=== PATIENT | male | born 1985 | race Caucasian/White ===

== ENCOUNTER 2019-09-20 06:01 | Emergency (ER) | payer OTHER, SELFPAY ==
[2019-09-20 06:05] VITALS: BP 161/80; PULSE 72; RESP 18; TEMP 36.4; O2SAT 99
[2019-09-20] MEDS: SODIUM CHLORIDE 0.9% 1,000 ML 1000 ML IV (06:30)
[2019-09-20] MEDS: ONDANSETRON 4 MG/2 ML INJ IV (06:30)
[2019-09-20] MEDS: HYDROMORPHONE 0.5 MG INJ IV (06:30)
--- NOTE | 2019-09-20 06:55 | ED.ABDPAIN ---
HPI - Abdominal Pain <Zuri Mary MD - Last Filed: 09/20/19 18:03> General Chief Complaint: Abdominal Pain Stated Complaint: abdominal pain Time Seen by Provider: 09/20/19 06:05 History of Present Illness HPI narrative: 33-year-old gentleman presents with left-sided abdominal pain present for 24 hours. Worse with movement not associated with nausea, vomiting, diarrhea. No fevers. He has describes it as consistent, nonradiating, and without cramps. Has not experienced similar episodes of pain. Related Data Allergies Allergy/AdvReac Type Severity Reaction Status Date / Time No Known Drug Allergies Allergy Verified 09/20/19 07:02 Review of Systems <Zuri Mary MD - Last Filed: 09/20/19 18:03> Review of Systems Narrative: : Pertinent positive and negative findings as per HPI, Remainder of review of systems is otherwise unremarkable for Constitutional: Fevers, chills, weakness ENT: No sore throat, neck pain, ear pain CV: Chest pain, palpitations, dyspnea on exertion Respiratory: Cough, wheeze, dyspnea : Dysuria, hematuria, flank pain MS: Muscle weakness, numbness, joint swelling or warmth Skin: Rashes, nonhealing lesions Neuro: Syncope, dizziness, tingling Endocrine: Fatigue, heat or cold intolerance, very dry skin Patient History <Zuri Mary MD - Last Filed: 09/20/19 18:03> Medical History (Updated 09/20/19 @ 08:38 by Hernandez Jolley DO) Low testosterone (Acute) Surgical History (Updated 09/20/19 @ 06:56 by Zuri Mary MD) History of breast surgery (Acute) Social History Smoking Status: Never smoker Smoking Status: Never smoker alcohol intake frequency: 0-2 drinks per day Substance Use Type: marijuana Exam <Zuri Mary MD - Last Filed: 09/20/19 18:03> Narrative Exam Narrative: General: Healthy appearing, in no acute distress. Able to give a complete and coherent history. Well-nourished well-developed HEENT: Moist mucous membranes, normal sclera with reactive pupils, Neck: No JVD, supple Respiratory: Lungs are clear to auscultation, no wheezing no rales no rhonchi. Full and symmetrical air movement Cardiac: Regular rate and rhythm no murmurs no bruits Abdomen: Soft, very tender in the entire left side but worse in the left lower quadrant. Hyperactive bowel tones, no rebound, no guarding. no flank pain Skin: Warm and dry, no rashes Neurologic: Grossly neurologically intact with no obvious asymmetries or abnormalities Extremities: No trauma, well perfused Psych: Cooperative, appropriate insight and affect Initial Vital Signs Initial Vital Signs: Vital Signs Temperature 97.5 F L 09/20/19 06:05 Pulse Rate 72 09/20/19 06:05 Respiratory Rate 18 09/20/19 06:05 Blood Pressure 161/80 H 09/20/19 06:05 Pulse Oximetry 99 09/20/19 06:05 <Hernandez Jolley DO - Last Filed: 09/20/19 08:39> Initial Vital Signs Initial Vital Signs: Vital Signs Temperature 97.5 F L 09/20/19 06:05 Pulse Rate 72 09/20/19 06:05 Respiratory Rate 18 09/20/19 06:05 Blood Pressure 161/80 H 09/20/19 06:05 Pulse Oximetry 99 09/20/19 06:05 Course <Zuri Mary MD - Last Filed: 09/20/19 18:03> Orders Ordered: Discontinued Medications Hydromorphone HCl (Dilaudid) 0.5 mg IV NOW ONE Stop: 09/20/19 06:59 Last Admin: 09/20/19 06:30 Dose: 0.5 mg Documented by: JENNIFER Hydromorphone HCl (Dilaudid) 1 mg IV NOW ONE Stop: 09/20/19 07:00 Last Admin: 09/20/19 07:40 Dose: 1 mg Documented by: MAYA Sodium Chloride (Normal Saline 0.9%) 1,000 mls @ 1,000 mls/hr IV BOLUS ONE Stop: 09/20/19 07:57 Last Infusion: 09/20/19 09:07 Dose: 0 mls/hr Documented by: Admin: 09/20/19 06:30 Dose: 1,000 mls/hr Documented by: JENNIFER Ondansetron HCl (Zofran) 4 mg IV NOW ONE Stop: 09/20/19 07:00 Last Admin: 09/20/19 06:30 Dose: 4 mg Documented by: JENNIFER Vital Signs Vital signs: Vital Signs - 8 hr 09/20/19 06:05 09/20/19 07:25 09/20/19 07:30 Temperature 97.5 F L Pulse Rate 72 61 65 Respiratory Rate 18 16 16 Blood Pressure 161/80 H Blood Pressure [Left Arm] 133/81 130/78 Pulse Oximetry 99 98 95 09/20/19 08:00 Temperature Pulse Rate 68 Respiratory Rate 16 Blood Pressure Blood Pressure [Left Arm] 138/74 Pulse Oximetry 96 <Hernandez Jolley DO - Last Filed: 09/20/19 08:39> Orders Ordered: Discontinued Medications Hydromorphone HCl (Dilaudid) 0.5 mg IV NOW ONE Stop: 09/20/19 06:59 Last Admin: 09/20/19 06:30 Dose: 0.5 mg Documented by: JENNIFER Hydromorphone HCl (Dilaudid) 1 mg IV NOW ONE Stop: 09/20/19 07:00 Last Admin: 09/20/19 07:40 Dose: 1 mg Documented by: MAYA Sodium Chloride (Normal Saline 0.9%) 1,000 mls @ 1,000 mls/hr IV BOLUS ONE Stop: 09/20/19 07:57 Last Infusion: 09/20/19 09:07 Dose: 0 mls/hr Documented by: Admin: 09/20/19 06:30 Dose: 1,000 mls/hr Documented by: JENNIFER Ondansetron HCl (Zofran) 4 mg IV NOW ONE Stop: 09/20/19 07:00 Last Admin: 09/20/19 06:30 Dose: 4 mg Documented by: JENNIFER Vital Signs Vital signs: Vital Signs - 8 hr 09/20/19 06:05 09/20/19 07:25 09/20/19 07:30 Temperature 97.5 F L Pulse Rate 72 61 65 Respiratory Rate 18 16 16 Blood Pressure 161/80 H Blood Pressure [Left Arm] 133/81 130/78 Pulse Oximetry 99 98 95 09/20/19 08:00 Temperature Pulse Rate 68 Respiratory Rate 16 Blood Pressure Blood Pressure [Left Arm] 138/74 Pulse Oximetry 96 MDM - Abdominal Pain <Zuri Mary MD - Last Filed: 09/20/19 18:03> Medical Records Attestation: I reviewed the patient's medical records. Lab Data Attestation: I reviewed the patient's lab results. Lab results narrative: CBC: WBC 6.6 HB.6 HCT:41.9 normal differential Result diagrams: 09/20/19 06:15 09/20/19 06:15 Labs: Lab Results 09/20/19 09/20/19 09/20/19 Range/Units 06:15 06:15 06:15 WBC 6.6 (4.5-11.0) X10^3/uL RBC 4.76 (4.5-5.9) X10^6/uL Hgb 14.6 (13.5-17.5) g/dL Hct 41.9 (41-53) % MCV 88.0 (80-100) fL MCH 30.7 (26-34) PG MCHC 34.9 (30-36) % RDW 13.3 (11.6-14.8) % Plt Count 215 (150-400) X10^3/uL Neut % (Auto) 64.7 (50-75) % Lymph % (Auto) 21.2 L (25-40) % [place] % (Auto) 9.7 (3-14) % Eos % (Auto) 3.3 (2-4) % Baso % (Auto) 1.1 (0-2) % Neut # (Auto) 4300 (6424-8985) /uL Lymph # (Auto) 1400 (7139-4609) /uL [place] # (Auto) 600 (0-900) /uL Eos # (Auto) 200 (0-450) /uL Baso # (Auto) 100 (0-100) /uL Sodium 139 (137-145) mmol/L Potassium 4.0 (3.4-5.1) mmol/L Chloride 106 (98-107) mmol/L Carbon Dioxide 25 (22-32) mmol/L BUN 20 (9-20) mg/dL Creatinine 0.87 (0.66-1.25) mg/dL Estimated GFR > 60.0 (>60) mL/min BUN/Creatinine Ratio 23.0 H (6-22) Glucose 96 (70-100) mg/dL Calcium 9.0 (8.4-10.2) mg/dL Total Bilirubin 0.4 (0.2-1.3) mg/dL AST 34 (17-59) IU/L ALT 27 (<50) IU/L Alkaline Phosphatase 53 (38-126) U/L Total Protein 6.7 (6.3-8.2) g/dL Albumin 4.1 (3.5-5.0) g/dL Globulin 2.6 (1.7-4.1) g/dL Albumin/Globulin Ratio 1.6 (1.0-2.8) Lipase 68 (23-300) U/L Point of care testing: Urine Dip Bedside Urine Glucose Negative Bedside Urine Bilirubin - Negative Bedside Urine Ketone - Negative Urine Specific [place] 1.010 Bedside Urine Occult Blood + Bedside Urine pH 6.5 Bedside Urine Protein - Negative Bedside Urine Urobilinogen - Negative Bedside Urine Nitrite - Negative Bedside Urine Leukocytes - Negative Esterase MDM Narrative Medical decision making narrative: 33-year-old gentleman with 24 hours of significant left-sided abdominal pain worse in the left lower quadrant. Concern for diverticulitis as well as pancreatitis. As he has no flank pain hematuria or dysuria kidney stone is less likely. <Hernandez Jolley DO - Last Filed: 09/20/19 08:39> Lab Data Attestation: I reviewed the patient's lab results. Labs: Lab Results 09/20/19 09/20/19 09/20/19 Range/Units 06:15 06:15 06:15 WBC 6.6 (4.5-11.0) X10^3/uL RBC 4.76 (4.5-5.9) X10^6/uL Hgb 14.6 (13.5-17.5) g/dL Hct 41.9 (41-53) % MCV 88.0 (80-100) fL MCH 30.7 (26-34) PG MCHC 34.9 (30-36) % RDW 13.3 (11.6-14.8) % Plt Count 215 (150-400) X10^3/uL Neut % (Auto) 64.7 (50-75) % Lymph % (Auto) 21.2 L (25-40) % [place] % (Auto) 9.7 (3-14) % Eos % (Auto) 3.3 (2-4) % Baso % (Auto) 1.1 (0-2) % Neut # (Auto) 4300 (3098-9595) /uL Lymph # (Auto) 1400 (8365-1423) /uL [place] # (Auto) 600 (0-900) /uL Eos # (Auto) 200 (0-450) /uL Baso # (Auto) 100 (0-100) /uL Sodium 139 (137-145) mmol/L Potassium 4.0 (3.4-5.1) mmol/L Chloride 106 (98-107) mmol/L Carbon Dioxide 25 (22-32) mmol/L BUN 20 (9-20) mg/dL Creatinine 0.87 (0.66-1.25) mg/dL Estimated GFR > 60.0 (>60) mL/min BUN/Creatinine Ratio 23.0 H (6-22) Glucose 96 (70-100) mg/dL Calcium 9.0 (8.4-10.2) mg/dL Total Bilirubin 0.4 (0.2-1.3) mg/dL AST 34 (17-59) IU/L ALT 27 (<50) IU/L Alkaline Phosphatase 53 (38-126) U/L Total Protein 6.7 (6.3-8.2) g/dL Albumin 4.1 (3.5-5.0) g/dL Globulin 2.6 (1.7-4.1) g/dL Albumin/Globulin Ratio 1.6 (1.0-2.8) Lipase 68 (23-300) U/L Point of care testing: Urine Dip Bedside Urine Glucose Negative Bedside Urine Bilirubin - Negative Bedside Urine Ketone - Negative Urine Specific [place] 1.010 Bedside Urine Occult Blood + Bedside Urine pH 6.5 Bedside Urine Protein - Negative Bedside Urine Urobilinogen - Negative Bedside Urine Nitrite - Negative Bedside Urine Leukocytes - Negative Esterase Imaging Data CT scan - abdomen/pelvis: Radiologist's Impression: [address] [address] [address] Scan Report Signed Patient: Martir Lynch [facility]#: [id number] : 1985Acct:[id number] Age/Sex: 33 / MDate of Service: 09/20/19 Loc: ED Accession Number: [id number] Procedure: CT abdomen pelvis w con Ordering Provider: Zuri Mary MD PROCEDURE: CT ABDOMEN PELVIS W CON INDICATIONS: lower abdomen pain TECHNIQUE: After the administration of intravenous contrast, 5 mm thick sections acquired from the diaphragm to the symphysis. 5 mm coronal and sagittal reformats were acquired. For radiation dose reduction, the following was used: automated exposure control, adjustment of mA and/or kV according to patient size. COMPARISON: None. FINDINGS: Image quality: Excellent. ABDOMEN: Lung bases: Lung bases are clear. 1.1 cm calcified nodule noted in the anterolateral right lung base. Heart size is normal. Solid organs: Liver is normal in size and enhancement. Gallbladder is within normal limits. Biliary system is non dilated. Pancreas enhances normally. Spleen is normal in size and enhancement. No adrenal nodules. Kidneys demonstrate normal size and enhancement, without hydronephrosis. Peritoneum and bowel: Bowel loops demonstrate normal wall thickness and caliber. Moderate amount of stool noted throughout the colon. No free fluid or air. Appendix is normal. Nodes and vessels: No retroperitoneal or mesenteric adenopathy by size criteria. Aorta and inferior vena cava are normal in size. Miscellaneous: No ventral hernias. PELVIS: Genitourinary: Bladder wall thickness is normal. Miscellaneous: No inguinal hernias or adenopathy. Bones: No suspicious bony lesions. No vertebral body compression fractures. IMPRESSION: 1. No acute disease. 2. No free fluid or free air. 3. No dilated loops of bowel. 4. Appendix is normal. 5. Moderate fecal loading throughout colon. Please correlate with clinical data. 6. 1.1 cm partially calcified nodule in the right lung base. Dictated by: Graciela Powell MD, PhD on 09/20/2019 at 8:30 Approved by: Graciela Powell MD, PhD on 09/20/2019 at 8:34 [facility] Narrative Medical decision making narrative: Dr jolley: Received turned over from night provider. Reviewed patient's history and physical and labs. Perform my own independent exam. Patient's CT scan shows no acute pathology other than a moderate amount of stool burden however the patient states that he has been having normal bowel movements on a regular basis. He has no skin changes. Has not had any diarrhea or no travel. Unsure the exact etiology the symptoms but it does not appear to be infectious. Does not appear to be a kidney stone. Does not appear to be a surgical issue. No indication for admission. Feel patient can be safely discharged home to follow-up. He was informed of the incidental lung nodule and follow-up related to that. Discharge Plan Departure Patient Disposition: Home Clinical Impression: Incidental lung nodule, less than or equal to 3mm Abdominal pain Qualifiers: Abdominal location: left lower quadrant Qualified Code(s): R10.32 - Left lower quadrant pain Discharge Date/Time: 09/20/19 09:14 Instructions: DI for Abdominal Pain-Adult Activity Restrictions/Additional Instructions: Recommend you contact your primary provider for follow-up. If your pain changes or you develop any other new symptoms please return to the emergency department. There was a incidental 1 cm calcified right-sided lung nodule seen on the CT scan today. This is not causing the symptoms that brought you to the emergency department however it is important that you talk with your primary provider regarding this to discuss follow-up.
[2019-09-20 07:04] LABS: Add Manual Diff / Slide Review NO; Basophils Absolute Auto 100 /uL (0-100); Basophils Percent Auto 1.1 % (0-2); Eosinophils Absolute Auto 200 /uL (0-450); Eosinophils Percent Auto 3.3 % (2-4); Hematocrit 41.9 % (41-53); Hemoglobin 14.6 g/dL (13.5-17.5); Lymphocytes Absolute Auto 1400 /uL (1100-4500); Lymphocytes Percent Auto 21.2 % (25-40); Mean Corpuscular HGB Conc 34.9 % (30-36); Mean Corpuscular Hemoglobin 30.7 PG (26-34); Monocytes Absolute Auto 600 /uL (0-900); Monocytes Percent Auto 9.7 % (3-14); Neutrophils Absolute Auto 4300 /uL (1500-7000); Neutrophils Percent Auto 64.7 % (50-75); Platelet Count 215 X10^3/uL (150-400); Red Blood Cell Count 4.76 X10^6/uL (4.5-5.9); Red Cell Distribution Width 13.3 % (11.6-14.8); White Blood Cell Count 6.6 X10^3/uL (4.5-11.0)
[2019-09-20 07:06] LABS: Alanine Aminotransferase 27 IU/L (<50); Albumin 4.1 g/dL (3.5-5.0); Albumin Globulin Ratio 1.6 (1.0-2.8); Alkaline Phosphatase 53 U/L (38-126); Aspartate Aminotransferase 34 IU/L (17-59); Bilirubin Total 0.4 mg/dL (0.2-1.3); Blood Urea Nitrogen 20 mg/dL (9-20); Carbon Dioxide 25 mmol/L (22-32); Chloride 106 mmol/L (98-107); Estimated Glomerular Filt Rate > 60.0 mL/min (>60); Globulin 2.6 g/dL (1.7-4.1); Glucose 96 mg/dL (70-100); HEMOLYSIS < 15 (0-50); Sodium 139 mmol/L (137-145); Total Protein 6.7 g/dL (6.3-8.2)
[2019-09-20 07:12] LABS: Lipase 68 U/L (23-300)
[2019-09-20 07:25] VITALS: BP 133/81; PULSE 61; RESP 16; O2SAT 98
[2019-09-20 07:30] VITALS: BP 130/78; PULSE 65; RESP 16; O2SAT 95
[2019-09-20] MEDS: HYDROMORPHONE 1 MG INJ IV (07:40)
--- NOTE | 2019-09-20 07:53 | PC.NURSE ---
reports left lower abdominal pain onset after getting out of the shower yesterday, denies injuries or trauma denies fever,vomiting, +bm today wnl, denies coughing. denies previous abdominal surgery reports, has restless legs uses marijuana edible.
[2019-09-20 08:00] VITALS: BP 138/74; PULSE 68; RESP 16; O2SAT 96
[2019-09-20 08:30] VITALS: BP 138/82; PULSE 70; RESP 16; O2SAT 96
== END 2019-09-20 09:14 | disposition home or self-care (01) ==
PROVIDERS: Emergency Medicine; Emergency Provider Emergency Medicine
DX: R10.32 Left lower quadrant pain (principal); R91.1 Solitary pulmonary nodule
CPT/HCPCS: 36415; 74177; 80053; 81003; 83690; 85025; 96361; 96374; 96375; 96376; 99284; J1170; J2405; Q9967

== ENCOUNTER 2019-09-28 06:16 | Emergency (ER) | payer OTHER, SELFPAY ==
--- NOTE | 2019-09-28 06:20 | ED_ITS ---
HPI - Abdominal Pain <Zuri Mary MD - Last Filed: 09/28/19 18:09> General Chief Complaint: Abdominal Pain Stated Complaint: ABD PAIN LEFT SIDE Time Seen by Provider: 09/28/19 06:20 History of Present Illness HPI narrative: 33-year-old gentleman with a history of low testosterone presents for the 2nd time in in a week with severe left lower quadrant abdominal pain. With his initial visit labs were unremarkable and a CT scan was non revealing. Over the interval week he has tried smooth move tea and notes that he did have quite a bit of stool out last week however over the last couple of days the pain is increased and he is no longer having as much success with the smooth move tea. Describes pain is deep and achy localized in the left lower quadrant without radiation. Got dramatically worse after dinner last night and he has been and unable to sleep all night. He describes no hematuria, dysuria he has had an episode of emesis is passing flatus, he describes no fevers, cough, chills, chest pain, dyspnea. Related Data Previous Rx's Medication Instructions Recorded ciprofloxacin HCl [Cipro] 500 mg PO BID #14 tab 09/28/19 hydrocodone-acetaminophen 1 tab PO Q6H PRN #10 tab 09/28/19 ondansetron 4 mg PO Q8H PRN #10 tab 09/28/19 Allergies Allergy/AdvReac Type Severity Reaction Status Date / Time No Known Drug Allergies Allergy Verified 09/20/19 07:02 Review of Systems <Zuri Mary MD - Last Filed: 09/28/19 18:09> Review of Systems Narrative: Pertinent positive and negative findings as per HPI Remainder of review of systems is otherwise unremarkable for Constitutional: Fevers, chills, weakness ENT: No sore throat, neck pain, ear pain MS: Muscle weakness, numbness, joint swelling or warmth Skin: Rashes, nonhealing lesions Neuro: Syncope, dizziness, tingling Patient History <Zuri Mary MD - Last Filed: 09/28/19 18:09> Medical History Low testosterone (Acute) Surgical History History of breast surgery (Acute) Social History Smoking Status: Never smoker Smoking Status: Never smoker alcohol intake frequency: 0-2 drinks per day Substance Use Type: marijuana Exam <Zuri Mary MD - Last Filed: 09/28/19 18:09> Narrative Exam Narrative: General: Healthy appearing, in mild distress. Able to give a complete and coherent history. Well-nourished well-developed HEENT: Moist mucous membranes, normal sclera with reactive pupils, Neck: No JVD, supple Respiratory: Lungs are clear to auscultation, no wheezing no rales no rhonchi. Full and symmetrical air movement Cardiac: Regular rate and rhythm no murmurs no bruits Abdomen: Soft tender in the left lower quadrant without rebound or guarding, good bowel tones, no flank pain Skin: Warm and dry, no rashes Neurologic: Grossly neurologically intact with no obvious asymmetries or abnormalities Extremities: No trauma, well perfused Psych: Cooperative, appropriate insight and affect Initial Vital Signs Initial Vital Signs: Vital Signs Temperature 97.9 F 09/28/19 06:25 Pulse Rate 64 09/28/19 06:25 Respiratory Rate 16 09/28/19 06:25 Blood Pressure 165/99 H 09/28/19 06:25 Pulse Oximetry 99 09/28/19 06:25 <Luna Sampson DO - Last Filed: 09/28/19 12:21> Initial Vital Signs Initial Vital Signs: Vital Signs Temperature 97.9 F 09/28/19 06:25 Pulse Rate 64 09/28/19 06:25 Respiratory Rate 16 09/28/19 06:25 Blood Pressure 165/99 H 09/28/19 06:25 Pulse Oximetry 99 09/28/19 06:25 Course <Zuri Mary MD - Last Filed: 09/28/19 18:09> Orders Ordered: Discontinued Medications Hydromorphone HCl (Dilaudid) 0.5 mg IV NOW ONE Stop: 09/28/19 06:36 Last Admin: 09/28/19 06:43 Dose: 0.5 mg Documented by: MARCIO Hydromorphone HCl (Dilaudid) 1 mg IV NOW ONE Stop: 09/28/19 08:58 Last Admin: 09/28/19 09:12 Dose: 1 mg Documented by: MENA Sodium Chloride (Normal Saline 0.9%) 1,000 mls @ 1,000 mls/hr IV BOLUS ONE Stop: 09/28/19 07:34 Last Infusion: 09/28/19 09:17 Dose: 0 mls/hr Documented by: Admin: 09/28/19 06:44 Dose: 1,000 mls/hr Documented by: MARCIO Ketorolac Tromethamine (Toradol) 30 mg IV NOW ONE Stop: 09/28/19 07:15 Last Admin: 09/28/19 08:05 Dose: 30 mg Documented by: WILBERT Ondansetron HCl (Zofran) 4 mg IV NOW ONE Stop: 09/28/19 06:36 Last Admin: 09/28/19 06:40 Dose: 4 mg Documented by: MARCIO Vital Signs Vital signs: Vital Signs - 8 hr 09/28/19 06:25 09/28/19 08:00 09/28/19 08:30 Temperature 97.9 F Pulse Rate 64 56 L 66 Respiratory Rate 16 14 14 Blood Pressure 165/99 H Blood Pressure [Right Arm] 154/85 H 160/84 H Pulse Oximetry 99 97 99 09/28/19 09:52 Temperature Pulse Rate 72 Respiratory Rate 16 Blood Pressure Blood Pressure [Right Arm] 141/77 H Pulse Oximetry 99 <Luna Sampson, - Last Filed: 09/28/19 12:21> Orders Ordered: Discontinued Medications Hydromorphone HCl (Dilaudid) 0.5 mg IV NOW ONE Stop: 09/28/19 06:36 Last Admin: 09/28/19 06:43 Dose: 0.5 mg Documented by: MARCIO Hydromorphone HCl (Dilaudid) 1 mg IV NOW ONE Stop: 09/28/19 08:58 Last Admin: 09/28/19 09:12 Dose: 1 mg Documented by: MENA Sodium Chloride (Normal Saline 0.9%) 1,000 mls @ 1,000 mls/hr IV BOLUS ONE Stop: 09/28/19 07:34 Last Infusion: 09/28/19 09:17 Dose: 0 mls/hr Documented by: Admin: 09/28/19 06:44 Dose: 1,000 mls/hr Documented by: APAFFIE Ketorolac Tromethamine (Toradol) 30 mg IV NOW ONE Stop: 09/28/19 07:15 Last Admin: 09/28/19 08:05 Dose: 30 mg Documented by: WILBERT Ondansetron HCl (Zofran) 4 mg IV NOW ONE Stop: 09/28/19 06:36 Last Admin: 09/28/19 06:40 Dose: 4 mg Documented by: MARCIO Vital Signs Vital signs: Vital Signs - 8 hr 09/28/19 06:25 09/28/19 08:00 09/28/19 08:30 Temperature 97.9 F Pulse Rate 64 56 L 66 Respiratory Rate 16 14 14 Blood Pressure 165/99 H Blood Pressure [Right Arm] 154/85 H 160/84 H Pulse Oximetry 99 97 99 09/28/19 09:52 Temperature Pulse Rate 72 Respiratory Rate 16 Blood Pressure Blood Pressure [Right Arm] 141/77 H Pulse Oximetry 99 MDM - Abdominal Pain <Zuri Aquiles Mary MD - Last Filed: 09/28/19 18:09> Lab Data Result diagrams: 09/28/19 06:28 09/28/19 06:28 Labs: Lab Results 09/28/19 09/28/19 09/28/19 Range/Units 06:28 06:28 08:00 WBC 14.1 H (4.5-11.0) X10^3/uL RBC 5.27 (4.5-5.9) X10^6/uL Hgb 16.2 (13.5-17.5) g/dL Hct 46.4 (41-53) % MCV 88.0 (80-100) fL MCH 30.8 (26-34) PG MCHC 34.9 (30-36) % RDW 13.2 (11.6-14.8) % Plt Count 249 (150-400) X10^3/uL Neut % (Auto) 91.6 H (50-75) % Lymph % (Auto) 3.8 L (25-40) % [place] % (Auto) 4.2 (3-14) % Eos % (Auto) 0.1 L (2-4) % Baso % (Auto) 0.3 (0-2) % Neut # (Auto) 21662 H (2608-6673) /uL Lymph # (Auto) 500 L (8893-6673) /uL [place] # (Auto) 600 (0-900) /uL Eos # (Auto) 0 (0-450) /uL Baso # (Auto) 0 (0-100) /uL Sodium 137 (137-145) mmol/L Potassium 4.3 (3.4-5.1) mmol/L Chloride 100 (98-107) mmol/L Carbon Dioxide 28 (22-32) mmol/L BUN 19 (9-20) mg/dL Creatinine 1.32 H (0.66-1.25) mg/dL Estimated GFR > 60.0 (>60) mL/min BUN/Creatinine Ratio 14.4 (6-22) Glucose 136 H (70-100) mg/dL Calcium 9.9 (8.4-10.2) mg/dL Total Bilirubin 0.7 (0.2-1.3) mg/dL AST 40 (17-59) IU/L ALT 30 (<50) IU/L Alkaline Phosphatase 68 (38-126) U/L Total Protein 8.1 (6.3-8.2) g/dL Albumin 5.0 (3.5-5.0) g/dL Globulin 3.1 (1.7-4.1) g/dL Albumin/Globulin Ratio 1.6 (1.0-2.8) Urine Color Yellow Urine Appearance Cloudy Urine pH 7.0 (4.5-8.0) Ur Specific [place] 1.010 (1.000-1.035) Urine Protein Negative (Negative) Urine Glucose (UA) Negative (Negative) g/dL Urine Ketones 2+ H (NEGATIVE) Urine Occult Blood 1+ H (Negative) Urine Nitrate Negative (Negative) Urine Bilirubin Negative (NEGATIVE) Urine Urobilinogen 0.2 (0.2) E.U./dL Ur Leukocyte Esterase Negative (NEGATIVE) Urine RBC 5-10/hpf H (0-5/HPF) Urine WBC 1-5/hpf (0-5/HPF) Amorphous Sediment 2+ Urine Bacteria Many (>30) H (None) Ur Culture Indicated? Cult not indicated <Luna Sampson DO - Last Filed: 09/28/19 12:21> Lab Data Attestation: I reviewed the patient's lab results. Labs: Lab Results 09/28/19 09/28/1909/27/20 Range/Units 06:28 06:28 08:00 WBC 14.1 H (4.5-11.0) X10^3/uL RBC 5.27 (4.5-5.9) X10^6/uL Hgb 16.2 (13.5-17.5) g/dL Hct 46.4 (41-53) % MCV 88.0 (80-100) fL MCH 30.8 (26-34) PG MCHC 34.9 (30-36) % RDW 13.2 (11.6-14.8) % Plt Count 249 (150-400) X10^3/uL Neut % (Auto) 91.6 H (50-75) % Lymph % (Auto) 3.8 L (25-40) % [place] % (Auto) 4.2 (3-14) % Eos % (Auto) 0.1 L (2-4) % Baso % (Auto) 0.3 (0-2) % Neut # (Auto) 46371 H (8650-6051) /uL Lymph # (Auto) 500 L (2237-2758) /uL [place] # (Auto) 600 (0-900) /uL Eos # (Auto) 0 (0-450) /uL Baso # (Auto) 0 (0-100) /uL Sodium 137 (137-145) mmol/L Potassium 4.3 (3.4-5.1) mmol/L Chloride 100 (98-107) mmol/L Carbon Dioxide 28 (22-32) mmol/L BUN 19 (9-20) mg/dL Creatinine 1.32 H (0.66-1.25) mg/dL Estimated GFR > 60.0 (>60) mL/min BUN/Creatinine Ratio 14.4 (6-22) Glucose 136 H (70-100) mg/dL Calcium 9.9 (8.4-10.2) mg/dL Total Bilirubin 0.7 (0.2-1.3) mg/dL AST 40 (17-59) IU/L ALT 30 (<50) IU/L Alkaline Phosphatase 68 (38-126) U/L Total Protein 8.1 (6.3-8.2) g/dL Albumin 5.0 (3.5-5.0) g/dL Globulin 3.1 (1.7-4.1) g/dL Albumin/Globulin Ratio 1.6 (1.0-2.8) Urine Color Yellow Urine Appearance Cloudy Urine pH 7.0 (4.5-8.0) Ur Specific [place] 1.010 (1.000-1.035) Urine Protein Negative (Negative) Urine Glucose (UA) Negative (Negative) g/dL Urine Ketones 2+ H (NEGATIVE) Urine Occult Blood 1+ H (Negative) Urine Nitrate Negative (Negative) Urine Bilirubin Negative (NEGATIVE) Urine Urobilinogen 0.2 (0.2) E.U./dL Ur Leukocyte Esterase Negative (NEGATIVE) Urine RBC 5-10/hpf H (0-5/HPF) Urine WBC 1-5/hpf (0-5/HPF) Amorphous Sediment 2+ Urine Bacteria Many (>30) H (None) Ur Culture Indicated? Cult not indicated Imaging Data CT scan - abdomen/pelvis: Radiologist's Impression: PROCEDURE: CT ABDOMEN PELVIS W CON INDICATIONS: left lower quad Pain TECHNIQUE: After the administration of intravenous contrast, 5 mm thick sections acquired from the diaphragm to the symphysis. 5 mm coronal and sagittal reformats were acquired. For radiation dose reduction, the following was used: automated exposure control, adjustment of mA and/or kV according to patient size. COMPARISON: [facility], CT, CT ABDOMEN PELVIS W CON, 09/20/2019, 7:01. FINDINGS: Image quality: Excellent. ABDOMEN: Presumed calcific granuloma seen in the anterior right sulcus on image 13/3 with calcification Solid organs: Liver is normal in size and enhancement. Gallbladder negative. Biliary system is non dilated. Pancreas enhances normally. Spleen is normal in size and enhancement. No adrenal nodules. Mild left perinephric fluid stranding. There is mild pelvocaliectasis and slight dilatation of the left ureter related to a 4-5 mm calculus on image 70/2. No bladder calculus seen. No right-sided urolithiasis or evidence of right urinary obstruction. Simple appearing left renal cyst. Additional subcentimeter poorly defined renal hypodensities, statistically small cysts, however technically too small to characterize accurately. Peritoneum and bowel: Bowel loops demonstrate normal wall thickness and caliber. No free fluid or air. Normal appendix. Nodes and vessels: No retroperitoneal or mesenteric adenopathy by size criteria. Aorta and inferior vena cava are normal in size. Miscellaneous: No ventral hernias. PELVIS: Genitourinary: Bladder wall thickness is normal. Miscellaneous: No inguinal hernias or adenopathy. Bones: No suspicious bony lesions. No vertebral body compression fractures. IMPRESSION: Minimally obstructive 4-5 mm left ureteral calculus as above. No other urolithiasis. This is much more conspicuous compared to prior study from 09/20/19, given interval development of minimal left urinary obstruction. The calculus may be only slightly more caudad in location, based on coronal images. Dictated by: Virgil Das M.D. on 09/28/2019 at 8:25 MDM Narrative Medical decision making narrative: Patient signed out to me by Dr. Guthrie I have seen evaluated patient myself. Tender in left lower quadrant. Labs show elevated WBC at 14 and increased creatinine 1.3 he continues to have pain and sweats with pain. He feels nauseated but no vomiting. He had bowel movement yesterday. Patient is found to have left-sided kidney stone. He is given discharge instructions in regards to kidney stone and pain control. I discussed all findings with the patient, Education has been performed regardi ng treatment plan, diagnosis, warning signs and symptoms and all concerns have been addressed. Verbally agree with and understood all of the above. Discharge Plan Departure Patient Disposition: Home Clinical Impression: Kidney stone on left side Discharge Date/Time: 09/28/19 10:20 Instructions: DI for Kidney Stones Activity Restrictions/Additional Instructions: * You've been diagnosed with kidney stone * What to do: Increase fluid intake, Strain urine, try to catch stone * Please follow-up with your primary care provider in the next 2-3 days, you may require urology consultation please discuss this with -If you should have fever, or pain is uncontrolled with medication at home or any other concerning symptoms return to ER for further evaluation MEDICATIONS Take Motrin 800 mg every 8 hours as needed for pain Take [place] every 6 hours if needed for severe pain Take Zofran every 4-6 hours if needed for nausea Take Cipro 500 mg twice a day for 7 days CONTROLLED SUBSTANCE DISCHARGE (Narcotoic/benzodiazepine) 1. You have been prescribed narcotic medications, it does have acetamin ophen/Tylenol/paracetamol in it so do not take extra Tylenol or Tylenol containing products 2. Please understand that we cannot provide further refills of narcotics, benzodiazepines or controlled substances through the ED and her pain management will need to be through your provider. 3. While on these medications you cannot drive or operate heavy machinery. 4. You cannot sign legal documents or perform any duties such as this. 5. As long as you're taking opiate pain medications he should also be taking a stool softener such as Colace, Dulcolax, MiraLAX or prune juice, to help avoid constipation. Prescriptions: New hydrocodone-acetaminophen 5-325 mg tablet 1 tab PO Q6H PRN (Reason: pain) Qty: 10 RF: 0 ondansetron 4 mg tablet,disintegrating 4 mg PO Q8H PRN (Reason: nausea and vomiting) Qty: 10 RF: 0 ciprofloxacin HCl [Cipro] 500 mg tablet 500 mg PO BID Qty: 14 RF: 0
[2019-09-28 06:25] VITALS: BP 165/99; PULSE 64; RESP 16; TEMP 36.6; O2SAT 99; BMI 25.2
--- NOTE | 2019-09-28 06:35 | DI.RAD.S_ITS ---
PROCEDURE: XR ABDOMEN 1V INDICATIONS: persistent left lower quadrant pain TECHNIQUE: One view of the abdomen acquired. COMPARISON: None. FINDINGS: Surgical changes and devices: None. Bowel: Bowel gas pattern is normal except for mild right colonic obstipation.. Soft tissues: No suspicious abdominal calcifications. Visualized solid organ contours appear normal in size. Bones: No suspicious bony lesions. IMPRESSION: Source of left lower quadrant pain is not found. Dictated by: Ja Odell M.D. on 09/28/2019 at 8:12 Approved by: Ja Odell M.D. on 09/28/2019 at 8:13
[2019-09-28] MEDS: ONDANSETRON 4 MG/2 ML INJ IV (06:40)
[2019-09-28] MEDS: HYDROMORPHONE 0.5 MG INJ IV (06:43)
[2019-09-28] MEDS: SODIUM CHLORIDE 0.9% 1,000 ML 1000 ML IV (06:44)
[2019-09-28 06:46] LABS: Add Manual Diff / Slide Review NO; Basophils Absolute Auto 0 /uL (0-100); Basophils Percent Auto 0.3 % (0-2); Eosinophils Absolute Auto 0 /uL (0-450); Eosinophils Percent Auto 0.1 % (2-4); Hematocrit 46.4 % (41-53); Hemoglobin 16.2 g/dL (13.5-17.5); Lymphocytes Absolute Auto 500 /uL (1100-4500); Lymphocytes Percent Auto 3.8 % (25-40); Mean Corpuscular HGB Conc 34.9 % (30-36); Mean Corpuscular Hemoglobin 30.8 PG (26-34); Monocytes Absolute Auto 600 /uL (0-900); Monocytes Percent Auto 4.2 % (3-14); Neutrophils Absolute Auto 12900 /uL (1500-7000); Neutrophils Percent Auto 91.6 % (50-75); Platelet Count 249 X10^3/uL (150-400); Red Blood Cell Count 5.27 X10^6/uL (4.5-5.9); Red Cell Distribution Width 13.2 % (11.6-14.8); White Blood Cell Count 14.1 X10^3/uL (4.5-11.0)
[2019-09-28 06:48] LABS: Alanine Aminotransferase 30 IU/L (<50); Albumin Globulin Ratio 1.6 (1.0-2.8); Alkaline Phosphatase 68 U/L (38-126); Aspartate Aminotransferase 40 IU/L (17-59); BUN Creatinine Ratio 14.4 (6-22); Bilirubin Total 0.7 mg/dL (0.2-1.3); Blood Urea Nitrogen 19 mg/dL (9-20); Calcium 9.9 mg/dL (8.4-10.2); Carbon Dioxide 28 mmol/L (22-32); Chloride 100 mmol/L (98-107); Estimated Glomerular Filt Rate > 60.0 mL/min (>60); Globulin 3.1 g/dL (1.7-4.1); Glucose 136 mg/dL (70-100); HEMOLYSIS < 15 (0-50); Potassium 4.3 mmol/L (3.4-5.1); Sodium 137 mmol/L (137-145); Total Protein 8.1 g/dL (6.3-8.2)
--- NOTE | 2019-09-28 07:57 | DI.CT.S_ITS ---
PROCEDURE: CT ABDOMEN PELVIS W CON INDICATIONS: left lower quad Pain TECHNIQUE: After the administration of intravenous contrast, 5 mm thick sections acquired from the diaphragm to the symphysis. 5 mm coronal and sagittal reformats were acquired. For radiation dose reduction, the following was used: automated exposure control, adjustment of mA and/or kV according to patient size. COMPARISON: [facility], CT, CT ABDOMEN PELVIS W CON, 09/20/2019, 7:01. FINDINGS: Image quality: Excellent. ABDOMEN: Presumed calcific granuloma seen in the anterior right sulcus on image 13/3 with calcification Solid organs: Liver is normal in size and enhancement. Gallbladder negative. Biliary system is non dilated. Pancreas enhances normally. Spleen is normal in size and enhancement. No adrenal nodules. Mild left perinephric fluid stranding. There is mild pelvocaliectasis and slight dilatation of the left ureter related to a 4-5 mm calculus on image 70/2. No bladder calculus seen. No right-sided urolithiasis or evidence of right urinary obstruction. Simple appearing left renal cyst. Additional subcentimeter poorly defined renal hypodensities, statistically small cysts, however technically too small to characterize accurately. Peritoneum and bowel: Bowel loops demonstrate normal wall thickness and caliber. No free fluid or air. Normal appendix. Nodes and vessels: No retroperitoneal or mesenteric adenopathy by size criteria. Aorta and inferior vena cava are normal in size. Miscellaneous: No ventral hernias. PELVIS: Genitourinary: Bladder wall thickness is normal. Miscellaneous: No inguinal hernias or adenopathy. Bones: No suspicious bony lesions. No vertebral body compression fractures. IMPRESSION: Minimally obstructive 4-5 mm left ureteral calculus as above. No other urolithiasis. This is much more conspicuous compared to prior study from 09/20/19, given interval development of minimal left urinary obstruction. The calculus may be only slightly more caudad in location, based on coronal images. Dictated by: Virgil Das M.D. on 09/28/2019 at 8:25 Approved by: Virgil Das M.D. on 09/28/2019 at 8:35
[2019-09-28 08:00] VITALS: BP 154/85; PULSE 56; RESP 14; O2SAT 97
[2019-09-28] MEDS: KETOROLAC 60 MG/2 ML VIAL 30 MG IV (08:05)
[2019-09-28 08:13] LABS: Appearance Urine UA CLOUDY; Bilirubin Urine UA NEGATIVE (NEGATIVE); Color Urine UA YELLOW; Glucose Urine UA NEGATIVE (Negative); Ketones Urine UA 2+ (NEGATIVE); Leukocyte Esterase Urine UA NEGATIVE (NEGATIVE); Nitrite Urine UA NEGATIVE (Negative); Occult Blood Urine UA 1+ (Negative); Protein Urine UA NEGATIVE (Negative); Urobilinogen Urine UA 0.2 E.U./dL (0.2)
[2019-09-28 08:24] LABS: Amorphous Sediment Urine 2+; Bacteria Urine Many (>30); RBC Urine 5-10/HPF (0-5/HPF); WBC Urine 1-5/HPF (0-5/HPF)
[2019-09-28 08:25] LABS: Culture Indicated Urine Cult Not Indicated
[2019-09-28 08:30] VITALS: BP 160/84; PULSE 66; RESP 14; O2SAT 99
[2019-09-28] MEDS: HYDROMORPHONE 1 MG INJ IV (09:12)
[2019-09-28 09:52] VITALS: BP 141/77; PULSE 72; RESP 16; O2SAT 99
== END 2019-09-28 10:20 | disposition home or self-care (01) ==
PROVIDERS: Emergency Medicine; Emergency Provider Emergency Medicine
DX: N20.0 Calculus of kidney (principal); R11.0 Nausea; D72.829 Elevated white blood cell count, unspecified
CPT/HCPCS: 36415; 74018; 74177; 80053; 81001; 85025; 96361; 96374; 96375; 96376; 99284; J1170; J1885; J2405; Q9967

== ENCOUNTER 2019-10-03 17:34 | Emergency (ER) | payer OTHER, SELFPAY ==
--- NOTE | 2019-10-03 17:48 | ED.ABDPAIN ---
HPI - Abdominal Pain <DEANNA Moreno - Last Filed: 10/03/19 20:50> General Chief Complaint: Abdominal Pain Stated Complaint: kidney stones Time Seen by Provider: 10/03/19 17:37 History of Present Illness HPI narrative: 33yo male presents emergency department for the 3rd time in the past 3 weeks for left-sided abdominal pain associated nausea. Patient was seen on 09/20/2019, CT negative for any concerning findings. Patient returned on 09/28/[address] confirmed renal calculi and urinary tract infection, ibuprofen, [place], Zofran, and ciprofloxacin. Patient states he has continued to take this as directed but the pain continues. [facility]. Patient denies any other symptoms such as fevers, chills, chest pain, shortness of breath, vomiting, pain with urination, blood in stool, or any other concerns. Related Data Previous Rx's Medication Instructions Recorded ciprofloxacin HCl [Cipro] 500 mg PO BID #14 tab 09/28/19 hydrocodone-acetaminophen 1 tab PO Q6H PRN #10 tab 09/28/19 ondansetron 4 mg PO Q8H PRN #10 tab 09/28/19 oxycodone-acetaminophen [Percocet] 1 tab PO TID PRN #10 tab 10/03/19 tamsulosin 0.4 mg PO DAILY 14 Days #14 cap 10/03/19 Allergies Allergy/AdvReac Type Severity Reaction Status Date / Time No Known Drug Allergies Allergy Verified 10/03/19 17:57 Review of Systems <DEANNA Moreno - Last Filed: 10/03/19 20:50> Review of Systems Narrative: REVIEW OF SYSTEMS: GENERAL: Denies fever or chills. HENT: No head trauma. CARDIOVASCULAR: No chest pain. RESPIRATORY: No shortness of breath or cough. GASTROINTESTINAL: Complains of left lower quadrant abdominal pain, see HPI GENITOURINARY: Reports left flank pain, see HPI. MUSCULOSKELETAL: No pain, weakness, or trauma. INTEGUMENTARY: No rash, lesions, or pruritus. NEURO: No numbness or tingling. PSYCH: No behavior or mood changes. Patient History <DEANNA Moreno - Last Filed: 10/03/19 20:50> Medical History Low testosterone (Acute) Surgical History History of breast surgery (Acute) Social History Smoking Status: Never smoker Smoking Status: Never smoker alcohol intake frequency: 0-2 drinks per day Substance Use Type: marijuana Exam <DEANNA Moreno - Last Filed: 10/03/19 20:50> Initial Vital Signs Initial Vital Signs: Vital Signs Temperature 98.3 F 10/03/19 17:57 Pulse Rate 82 10/03/19 17:57 Respiratory Rate 18 10/03/19 17:57 Blood Pressure 165/85 H 10/03/19 17:57 Pulse Oximetry 100 10/03/19 17:57 PHYSICAL EXAMINATION: GENERAL: Well groomed, alert, and cooperative. Answers questions promptly and appropriately. Vital signs noted. HENT: Normocephalic, atraumatic. Hearing intact. Oral mucosa is pink and moist. EYES: Conjunctiva pink, sclera white, no periorbital swelling. CARDIOVASCULAR: S1 and S2 sounds normal. Regular rate and rhythm, no murmurs, clicks, or bruits. No pedal edema. RESPIRATORY: Normal respiratory rate, trachea midline, airway patent. No stridor, nasal flaring or accessory muscle use. Lungs are clear in all young without wheeze, rhonchi, or crackles. GASTROINTESTINAL: Bowel sounds normoactive. Abdomen is soft and mild left lower quadrant tenderness. No organomegaly, no palpable masses. GENITALURINARY: Left CVA tenderness, patient of this area also worsens left lower quadrant tenderness. MUSCULOSKELETAL: Normal gait and coordination. Equal tone and mass bilaterally. EXTREMITIES: CMS intact, no pedal edema. SKIN: Warm, dry, soft, appropriate color for ethnicity. No lesions, rashes, or wounds to visualized areas. NEURO: Alert and Oriented X 3. Good coordination. No ataxia, or sensory deficits, or cognitive issues. PSYCH: Appropriate affect and mood. <Monroe Crawford DO - Last Filed: 10/04/19 02:13> Initial Vital Signs Initial Vital Signs: Vital Signs Temperature 98.3 F 10/03/19 17:57 Pulse Rate 82 10/03/19 17:57 Respiratory Rate 18 10/03/19 17:57 Blood Pressure 165/85 H 10/03/19 17:57 Pulse Oximetry 100 10/03/19 17:57 Course <DEANNA Moreno - Last Filed: 10/03/19 20:50> Course Course Narrative: 2007: Patient reports he is feeling better, updated on plan of care. Patient agreed with this. Orders Ordered: ED Orders 10/03/19 17:40 Complete Blood Count AUTO DIFF Stat Comprehensive Metabolic Panel Stat Lactate (Lactic Acid) Stat 10/03/19 18:16 US renal complete Stat Discontinued Medications Sodium Chloride (Normal Saline 0.9%) 1,000 mls @ 1,000 mls/hr IV BOLUS ONE Stop: 10/03/19 18:45 Last Infusion: 10/03/19 19:31 Dose: 0 mls/hr Documented by: Admin: 10/03/19 18:11 Dose: 1,000 mls/hr Documented by: DANIEL Ketorolac Tromethamine (Toradol) 30 mg IV NOW ONE Stop: 10/03/19 17:47 Last Admin: 10/03/19 18:12 Dose: 30 mg Documented by: DANIEL Ondansetron HCl (Zofran) 4 mg IV NOW ONE Stop: 10/03/19 17:47 Last Admin: 10/03/19 18:12 Dose: 4 mg Documented by: DANIEL Oxycodone/Acetaminophen (Endocet 5/325 Prepack) 1 bottle MISC SEEINSTR ONE Stop: 10/03/19 20:33 Last Admin: 10/03/19 20:45 Dose: 1 bottle Documented by: NANO Tamsulosin HCl (Flomax) 0.4 mg PO NOW ONE Stop: 10/03/19 20:33 Last Admin: 10/03/19 20:45 Dose: 0.4 mg Documented by: NANO Reevaluation(s) Reevaluation #1: Discussed symptoms and test with Dr. Jolley. Vital Signs Vital signs: Vital Signs - 8 hr 10/03/19 19:17 10/03/19 20:50 Pulse Rate 65 62 Respiratory Rate 18 18 Blood Pressure 126/72 Blood Pressure [Right Arm] 131/76 Pulse Oximetry 99 98 <Monroe Crawford DO - Last Filed: 10/04/19 02:13> Orders Ordered: ED Orders 10/03/19 17:40 Complete Blood Count AUTO DIFF Stat Comprehensive Metabolic Panel Stat Lactate (Lactic Acid) Stat 10/03/19 18:16 US renal complete Stat Discontinued Medications Sodium Chloride (Normal Saline 0.9%) 1,000 mls @ 1,000 mls/hr IV BOLUS ONE Stop: 10/03/19 18:45 Last Infusion: 10/03/19 19:31 Dose: 0 mls/hr Documented by: Admin: 10/03/19 18:11 Dose: 1,000 mls/hr Documented by: DANIEL Ketorolac Tromethamine (Toradol) 30 mg IV NOW ONE Stop: 10/03/19 17:47 Last Admin: 10/03/19 18:12 Dose: 30 mg Documented by: DANIEL Ondansetron HCl (Zofran) 4 mg IV NOW ONE Stop: 10/03/19 17:47 Last Admin: 10/03/19 18:12 Dose: 4 mg Documented by: DANIEL Oxycodone/Acetaminophen (Endocet 5/325 Prepack) 1 bottle MISC SEEINSTR ONE Stop: 10/03/19 20:33 Last Admin: 10/03/19 20:45 Dose: 1 bottle Documented by: NANO Tamsulosin HCl (Flomax) 0.4 mg PO NOW ONE Stop: 10/03/19 20:33 Last Admin: 10/03/19 20:45 Dose: 0.4 mg Documented by: NANO Vital Signs Vital signs: Vital Signs - 8 hr 10/03/19 19:17 10/03/19 20:50 Pulse Rate 65 62 Respiratory Rate 18 18 Blood Pressure 126/72 Blood Pressure [Right Arm] 131/76 Pulse Oximetry 99 98 MDM - Abdominal Pain <DEANNA Moreno - Last Filed: 10/03/19 20:50> Medical Records Attestation: I reviewed the patient's medical records. Lab Data Attestation: I reviewed the patient's lab results. Result diagrams: 10/03/19 17:40 10/03/19 17:40 Labs: Lab Results 10/03/19 10/03/19 10/03/19 Range/Units 17:40 17:40 17:40 WBC 8.9 (4.5-11.0) X10^3/uL RBC 5.10 (4.5-5.9) X10^6/uL Hgb 15.6 (13.5-17.5) g/dL Hct 44.8 (41-53) % MCV 87.9 (80-100) fL MCH 30.5 (26-34) PG MCHC 34.7 (30-36) % RDW 13.3 (11.6-14.8) % Plt Count 261 (150-400) X10^3/uL Neut % (Auto) 80.8 H (50-75) % Lymph % (Auto) 12.8 L (25-40) % Faulk % (Auto) 4.9 (3-14) % Eos % (Auto) 1.2 L (2-4) % Baso % (Auto) 0.3 (0-2) % Neut # (Auto) 7200 H (9417-2563) /uL Lymph # (Auto) 1100 (9210-2337) /uL Faulk # (Auto) 400 (0-900) /uL Eos # (Auto) 100 (0-450) /uL Baso # (Auto) 0 (0-100) /uL Sodium 136 L (137-145) mmol/L Potassium 4.3 (3.4-5.1) mmol/L Chloride 103 (98-107) mmol/L Carbon Dioxide 27 (22-32) mmol/L BUN 13 (9-20) mg/dL Creatinine 0.90 (0.66-1.25) mg/dL Estimated GFR > 60.0 (>60) mL/min BUN/Creatinine Ratio 14.4 (6-22) Glucose 102 H (70-100) mg/dL Lactate 0.9 (0.7-2.1) mmol/L Calcium 9.5 (8.4-10.2) mg/dL Total Bilirubin 0.7 (0.2-1.3) mg/dL AST 30 (17-59) IU/L ALT 21 (<50) IU/L Alkaline Phosphatase 47 (38-126) U/L Total Protein 7.0 (6.3-8.2) g/dL Albumin 4.4 (3.5-5.0) g/dL Globulin 2.6 (1.7-4.1) g/dL Albumin/Globulin Ratio 1.7 (1.0-2.8) Point of care testing: Urine Dip Bedside Urine Glucose Negative Bedside Urine Bilirubin - Negative Bedside Urine Ketone - Negative Urine Specific [place] 1.010 Bedside Urine Occult Blood - Negative Bedside Urine pH 8.0 Bedside Urine Protein - Negative Bedside Urine Urobilinogen - Negative Bedside Urine Nitrite - Negative Bedside Urine Leukocytes - Negative Esterase Imaging Data Renal US: Radiologist's Impression: [address] [address] Ultrasound Report Signed Patient: Martir Lynch [facility]#: [id number] : 1985Acct:[id number] Age/Sex: 33 / MDate of Service: 10/03/19 Loc: ED Accession Number: [id number] Procedure: US renal complete Ordering Provider: Nithya Arriaza PROCEDURE: US RENAL COMPLETE INDICATIONS: KNOWN RENAL CALCULI, R/O HYDRONEPHROSIS, LLQ PAIN TECHNIQUE: Real-time scanning was performed of the kidneys and bladder, with image documentation. COMPARISON: None. FINDINGS: Kidneys: Kidneys are normal in size. Right kidney measures 11.9 cm long; left kidney measures 11.9 cm long. Right renal cortical thickness is 1.3 cm; left renal cortical thickness is 1.5 cm. Renal cortical echotexture is normal. No right-sided hydronephrosis. 8 x 6 x 6 mm hyperechoic nodule is seen in upper pole of right kidney and likely represent angiomyolipoma. There is mild left renal pelvic fullness. 1.6 x 1.3 x 1.3 cm cyst is seen in upper pole of left kidney. Bladder: Pre-void bladder volume is 105 mL. Pre-void images demonstrate no intraluminal masses or stones. There is a 4 mm stone seen in distal left ureter 2 cm proximal to left UVJ. Miscellaneous: No free pelvic fluid. IMPRESSION: 1. Suggestion of 4 mm distal left ureteral stone with mild left hydronephrosis and hydroureter. 2. No right-sided hydronephrosis. Possible subcentimeter angiomyolipoma in right kidney as above. Left renal cyst as above. 3. No gross abnormality is seen in the bladder. Dictated by: Jemal Mendoza M.D. on 10/03/2019 at 20:00 Approved by: Jemal Mendoza M.D. on 10/03/2019 at 20:04 [facility] Narrative Medical decision making narrative: 33-year-old male presents to the emergency department for continued left side pain after known diagnosis of renal calculi. Ultrasound shows that stone has progressed to the distal ureter, remains approximately 4 mm in size, mild hydronephrosis, small amount of urine noted able to flow through ureter. Patient's pain was significantly improved after administration of Toradol. I suspect he has continued pain due to his renal calculi. It appears patient has infection is resolving, normal white blood cell count, no bacteria or white blood cells seen in urine. No signs of systemic infection such as tachycardia, fever, or hemodynamic instability. Patient was encouraged to continue ciprofloxacin until the course of treatment is finished. Discussed the pros and cons of starting tamsulosin such as low blood pressure and dizziness, patient agreed to try this to help with possible ureter dilation. Patient reported hydrocodone was helpful but significant amount of pain remain. He was switched to a small dose of Percocet to help with breakthrough pain. Patient was referred to Urology were follow-up and further evaluation. Less concern for other abdominal etiology such as diverticulitis due to lack of other symptoms such as diarrhea, history of diverticulitis, normal white blood cell count. Return precautions given. Patient agreed to plan of care verbalized understanding. <Monroe Crawford, DO - Last Filed: 10/04/19 02:13> Lab Data Labs: Lab Results 10/03/19 10/03/19 10/03/19 Range/Units 17:40 17:40 17:40 WBC 8.9 (4.5-11.0) X10^3/uL RBC 5.10 (4.5-5.9) X10^6/uL Hgb 15.6 (13.5-17.5) g/dL Hct 44.8 (41-53) % MCV 87.9 (80-100) fL MCH 30.5 (26-34) PG MCHC 34.7 (30-36) % RDW 13.3 (11.6-14.8) % Plt Count 261 (150-400) X10^3/uL Neut % (Auto) 80.8 H (50-75) % Lymph % (Auto) 12.8 L (25-40) % Faulk % (Auto) 4.9 (3-14) % Eos % (Auto) 1.2 L (2-4) % Baso % (Auto) 0.3 (0-2) % Neut # (Auto) 7200 H (6374-6408) /uL Lymph # (Auto) 1100 (8304-6444) /uL Faulk # (Auto) 400 (0-900) /uL Eos # (Auto) 100 (0-450) /uL Baso # (Auto) 0 (0-100) /uL Sodium 136 L (137-145) mmol/L Potassium 4.3 (3.4-5.1) mmol/L Chloride 103 (98-107) mmol/L Carbon Dioxide 27 (22-32) mmol/L BUN 13 (9-20) mg/dL Creatinine 0.90 (0.66-1.25) mg/dL Estimated GFR > 60.0 (>60) mL/min BUN/Creatinine Ratio 14.4 (6-22) Glucose 102 H (70-100) mg/dL Lactate 0.9 (0.7-2.1) mmol/L Calcium 9.5 (8.4-10.2) mg/dL Total Bilirubin 0.7 (0.2-1.3) mg/dL AST 30 (17-59) IU/L ALT 21 (<50) IU/L Alkaline Phosphatase 47 (38-126) U/L Total Protein 7.0 (6.3-8.2) g/dL Albumin 4.4 (3.5-5.0) g/dL Globulin 2.6 (1.7-4.1) g/dL Albumin/Globulin Ratio 1.7 (1.0-2.8) Point of care testing: Urine Dip Bedside Urine Glucose Negative Bedside Urine Bilirubin - Negative Bedside Urine Ketone - Negative Urine Specific [place] 1.010 Bedside Urine Occult Blood - Negative Bedside Urine pH 8.0 Bedside Urine Protein - Negative Bedside Urine Urobilinogen - Negative Bedside Urine Nitrite - Negative Bedside Urine Leukocytes - Negative Esterase Discharge Plan Departure Patient Disposition: Home Clinical Impression: Calculus, renal Discharge Date/Time: 10/03/19 20:51 Instructions: DI for Kidney Stones Activity Restrictions/Additional Instructions: Thank you for entrusting me with your care today. As discussed, your kidney stone is close to your bladder, once it reaches your bladder your pain should decreased. Your renal labs and white blood cell count are within normal limits, this is an improvement since her visit on 09/27. Continue to take your antibiotics until the course is complete. I prescribed you tamsulosin to help with the dilation of your ureters. This can lower your blood pressure and make you dizzy, change positions slowly. If you dizziness becomes significant discontinue the medication. You may discontinue this medication after the pass your kidney stone. You have been prescribed a narcotic medication, this medication can make you drowsy. Do not drive while using this medication or perform activities that require mental alertness. These medications can also make you constipated, please use [id number] docusate sodium as needed for constipation. I referred you to urologist, please call the office and schedule an appointment. Return emergency department for any new or worsening symptoms such as extreme pain, high fevers, uncontrollable vomiting, syncope, chest pain, or any other concerns. Prescriptions: New oxycodone-acetaminophen [Percocet] 5-325 mg tablet 1 tab PO TID PRN (Reason: pain) Qty: 10 RF: 0 tamsulosin 0.4 mg capsule 0.4 mg PO DAILY 14 Days Qty: 14 RF: 0 No Action hydrocodone-acetaminophen 5-325 mg tablet 1 tab PO Q6H PRN (Reason: pain) Qty: 10 RF: 0 ondansetron 4 mg tablet,disintegrating 4 mg PO Q8H PRN (Reason: nausea and vomiting) Qty: 10 RF: 0 ciprofloxacin HCl [Cipro] 500 mg tablet 500 mg PO BID Qty: 14 RF: 0 Referrals: Karen Joshi ARNP [Physician] - <Monroe Crawford DO - Last Filed: 10/04/19 02:13> [facility] I was immediately available in the department for consultation. This documentation has been reviewed and I agree with assessment and plan. Supervised by Monroe Crawford DO
[2019-10-03 17:57] VITALS: BP 165/85; PULSE 82; RESP 18; TEMP 36.8; O2SAT 100; BMI 25.7
[2019-10-03 17:59] LABS: Add Manual Diff / Slide Review NO; Basophils Absolute Auto 0 /uL (0-100); Basophils Percent Auto 0.3 % (0-2); Eosinophils Absolute Auto 100 /uL (0-450); Eosinophils Percent Auto 1.2 % (2-4); Hematocrit 44.8 % (41-53); Hemoglobin 15.6 g/dL (13.5-17.5); Lymphocytes Absolute Auto 1100 /uL (1100-4500); Lymphocytes Percent Auto 12.8 % (25-40); Mean Corpuscular HGB Conc 34.7 % (30-36); Mean Corpuscular Hemoglobin 30.5 PG (26-34); Mean Corpuscular Volume 87.9 fL (80-100); Monocytes Absolute Auto 400 /uL (0-900); Monocytes Percent Auto 4.9 % (3-14); Neutrophils Absolute Auto 7200 /uL (1500-7000); Neutrophils Percent Auto 80.8 % (50-75); Platelet Count 261 X10^3/uL (150-400); Red Cell Distribution Width 13.3 % (11.6-14.8); White Blood Cell Count 8.9 X10^3/uL (4.5-11.0)
[2019-10-03 18:10] LABS: Lactate (Lactic Acid) 0.9 mmol/L (0.7-2.1)
[2019-10-03 18:11] LABS: Alanine Aminotransferase 21 IU/L (<50); Albumin 4.4 g/dL (3.5-5.0); Albumin Globulin Ratio 1.7 (1.0-2.8); Alkaline Phosphatase 47 U/L (38-126); Aspartate Aminotransferase 30 IU/L (17-59); BUN Creatinine Ratio 14.4 (6-22); Bilirubin Total 0.7 mg/dL (0.2-1.3); Blood Urea Nitrogen 13 mg/dL (9-20); Calcium 9.5 mg/dL (8.4-10.2); Carbon Dioxide 27 mmol/L (22-32); Chloride 103 mmol/L (98-107); Estimated Glomerular Filt Rate > 60.0 mL/min (>60); Globulin 2.6 g/dL (1.7-4.1); Glucose 102 mg/dL (70-100); HEMOLYSIS 38 (0-50); Potassium 4.3 mmol/L (3.4-5.1); Sodium 136 mmol/L (137-145)
[2019-10-03] MEDS: SODIUM CHLORIDE 0.9% 1,000 ML 1000 ML IV (18:11)
[2019-10-03] MEDS: ONDANSETRON 4 MG/2 ML INJ IV (18:12)
[2019-10-03] MEDS: KETOROLAC 60 MG/2 ML VIAL 30 MG IV (18:12)
--- NOTE | 2019-10-03 18:16 | DI.US.S_ITS ---
PROCEDURE: US RENAL COMPLETE INDICATIONS: KNOWN RENAL CALCULI, R/O HYDRONEPHROSIS, LLQ PAIN TECHNIQUE: Real-time scanning was performed of the kidneys and bladder, with image documentation. COMPARISON: None. FINDINGS: Kidneys: Kidneys are normal in size. Right kidney measures 11.9 cm long; left kidney measures 11.9 cm long. Right renal cortical thickness is 1.3 cm; left renal cortical thickness is 1.5 cm. Renal cortical echotexture is normal. No right-sided hydronephrosis. 8 x 6 x 6 mm hyperechoic nodule is seen in upper pole of right kidney and likely represent angiomyolipoma. There is mild left renal pelvic fullness. 1.6 x 1.3 x 1.3 cm cyst is seen in upper pole of left kidney. Bladder: Pre-void bladder volume is 105 mL. Pre-void images demonstrate no intraluminal masses or stones. There is a 4 mm stone seen in distal left ureter 2 cm proximal to left UVJ. Miscellaneous: No free pelvic fluid. IMPRESSION: 1. Suggestion of 4 mm distal left ureteral stone with mild left hydronephrosis and hydroureter. 2. No right-sided hydronephrosis. Possible subcentimeter angiomyolipoma in right kidney as above. Left renal cyst as above. 3. No gross abnormality is seen in the bladder. Dictated by: Jemal Mendoza M.D. on 10/03/2019 at 20:00 Approved by: Jemal Mendoza M.D. on 10/03/2019 at 20:04
[2019-10-03 19:17] VITALS: BP 131/76; PULSE 65; RESP 18; O2SAT 99
[2019-10-03] MEDS: OXYCODONE/APAP 5/325 PREPACK 1 BOTTLE MISC (20:45)
[2019-10-03] MEDS: TAMSULOSIN 0.4 MG CAPSULE PO (20:45)
[2019-10-03 20:50] VITALS: BP 126/72; PULSE 62; RESP 18; O2SAT 98
== END 2019-10-03 20:51 | disposition home or self-care (01) ==
PROVIDERS: Emergency Provider Nurse Practitioner
DX: N20.0 Calculus of kidney (principal)
CPT/HCPCS: 36415; 76770; 80053; 81003; 83605; 85025; 96361; 96374; 96375; 99284; J1885; J2405

== ENCOUNTER 2019-10-07 20:22 | Emergency (ER) | payer OTHER, SELFPAY ==
--- NOTE | 2019-10-07 20:26 | ED.MALEGU ---
HPI - Male Genitourinary General Chief complaint: Urogenital-Male Stated complaint: Kidney stone Time Seen by Provider: 10/07/19 20:25 Source: patient and family Mode of arrival: Ambulatory Limitations: no limitations History of Present Illness HPI Narrative: 33 year old male nonsmoker with history of low testosterone and known left sided kidney stone returns for the 4th time since 09/18 for Left sided pain. He has multiple imaging modalities noting a 4-5 mm stone in the left ureteral system with associated hydro. He ran out of pain meds and doesn't see a urologist for a few days. [facility]. He denies runny nose, sore throat nor fever, chills or other signs of systemic problems. His pain is only in the left lower quadrant and he denies any radiation to his back or flank. Related Data Previous Rx's Medication Instructions Recorded ciprofloxacin HCl [Cipro] 500 mg PO BID #14 tab 09/28/19 hydrocodone-acetaminophen 1 tab PO Q6H PRN #10 tab 09/28/19 ondansetron 4 mg PO Q8H PRN #10 tab 09/28/19 oxycodone-acetaminophen [Percocet] 1 tab PO TID PRN #10 tab 10/03/19 tamsulosin 0.4 mg PO DAILY 14 Days #14 cap 10/03/19 Allergies Allergy/AdvReac Type Severity Reaction Status Date / Time No Known Drug Allergies Allergy Verified 10/07/19 20:55 Review of Systems Constitutional Constitutional: Denies chills, Denies fatigue, Denies fever(s), Denies frequent falls, Denies lethargy and Denies weakness Eyes Eyes: Denies change in vision, Denies eye discharge, Denies irritation and Denies loss of vision ENT Ears, Nose, Mouth, and Throat: Denies change in voice, Denies dizziness, Denies neck pain, Denies sore throat and Denies throat swelling Cardiovascular Cardiovascular: Denies chest pain, Denies irregular heart rhythm, Denies lightheadedness, Denies palpitations, Denies dyspnea, Denies dyspnea on exertion and Denies orthopnea Respiratory Respiratory: Denies cough, Denies dyspnea, Denies dyspnea on exertion and Denies wheezing Gastrointestinal Gastrointestinal: Reports abdominal pain, Denies change in bowel habits, Denies diarrhea, Denies nausea and Denies vomiting Musculoskeletal Musculoskeletal: Denies neck pain and Denies numbness Integumentary/Breasts Skin/Breast: Denies pruritus, Denies erythema, Denies rash and Denies wounds Neurologic Neurologic: Denies behavioral changes, Denies confusion, Denies dizziness, Denies frequent falls, Denies loss of vision, Denies numbness and Denies weakness Psychiatric Psychiatric: Denies anxiety, Denies behavioral changes, Denies confusion, Denies depression, Denies homicidal ideation and Denies suicidal ideation Endocrine Endocrine: Denies fatigue, Denies flushing and Denies palpitations Hematologic/Lymphatic Hematologic/Lymphatic: Denies easy bruising Allergic/Immunologic Allergic/Immunologic: Denies urticaria, Denies throat swelling and Denies wheezing Patient History Medical History Low testosterone (Acute) Surgical History History of breast surgery (Acute) Social History Smoking Status: Never smoker Smoking Status: Never smoker alcohol intake frequency: 0-2 drinks per day Substance Use Type: marijuana Exam Narrative Exam Narrative: GENERAL: [33] year old patient appears stated age. Well-nourished, well-developed patient, in mild distress. Obviously in pain and rubbing his left lower abdomen HEAD: Atraumatic. Normocephalic. EYES: Pupils equal round and reactive. Extraocular motions intact. No scleral icterus. No injection or drainage. ENT: Nose without bleeding, purulent drainage. Throat without erythema, tonsillar hypertrophy or exudate. Airway patent. NECK: Trachea midline. Non tender CARDIOVASCULAR: Regular rate and rhythm without murmurs, gallops, or rubs. RESPIRATORY: Clear to auscultation. Breath sounds equal bilaterally. No wheezes, rales, or rhonchi. GASTROINTESTINAL: Abdomen soft, tender in left lower quadrant, nondistended. EXTREMITIES: No edema or joint tenderness. BACK: Nontender without deformity or crepitance. No flank tenderness. NEURO: AOx3. SKIN: No rash or erythema of visible areas Initial Vital Signs Initial Vital Signs: Vital Signs Temperature 98.1 F 10/07/19 20:46 Pulse Rate 68 10/07/19 20:46 Respiratory Rate 14 10/07/19 20:46 Blood Pressure 161/96 H 10/07/19 20:46 Pulse Oximetry 100 10/07/19 20:46 Course Orders Ordered: ED Orders 10/07/19 20:30 UA Complete [Urinalysis and Microscopic] Stat Urine Culture Stat 10/07/19 20:40 Basic Metabolic Panel Stat Complete Blood Count AUTO DIFF Stat 10/07/19 21:29 US renal complete Stat Discontinued Medications Hydrocodone Bitart/Acetaminophen (Vicodin 5/325 Prepack) 1 bottle MISC SEEINSTR ONE Stop: 10/07/19 22:41 Last Admin: 10/07/19 22:49 Dose: 1 bottle Documented by: JIMMY Hydromorphone HCl (Dilaudid) 1 mg IV NOW ONE Stop: 10/07/19 22:41 Last Admin: 10/07/19 22:50 Dose: 1 mg Documented by: JIMMY Sodium Chloride (Normal Saline 0.9%) 1,000 mls @ 1,000 mls/hr IV BOLUS ONE Stop: 10/07/19 21:34 Last Infusion: 10/07/19 23:01 Dose: 0 mls/hr Documented by: Admin: 10/07/19 20:50 Dose: 1,000 mls/hr Documented by: JIMMY Lidocaine HCl 6.3 ml/ Sodium (Chloride) 56.3 mls @ 337.8 mls/hr IV NOW ONE Stop: 10/07/19 21:57 Last Infusion: 10/07/19 22:50 Dose: 0 mls/hr Documented by: Admin: 10/07/19 22:10 Dose: 337.8 mls/hr Documented by: MADELEINE Ketorolac Tromethamine (Toradol) 15 mg IV NOW ONE Stop: 10/07/19 20:36 Last Admin: 10/07/19 22:02 Dose: Not Given Documented by: JIMMY Vital Signs Vital signs: Vital Signs - 8 hr 10/07/19 22:58 Temperature 98.2 F Pulse Rate 69 Respiratory Rate 16 Blood Pressure 133/84 Pulse Oximetry 99 MDM - Male Genitourinary Lab Data Result diagrams: 10/07/19 20:40 10/07/19 20:40 Labs: Lab Results 10/07/19 10/07/19 10/07/19 Range/Units 20:30 20:40 20:40 WBC 10.5 (4.5-11.0) X10^3/uL RBC 4.50 (4.5-5.9) X10^6/uL Hgb 13.9 (13.5-17.5) g/dL Hct 39.7 L (41-53) % MCV 88.1 (80-100) fL MCH 30.9 (26-34) PG MCHC 35.1 (30-36) % RDW 12.9 (11.6-14.8) % Plt Count 228 (150-400) X10^3/uL Neut % (Auto) 66.7 (50-75) % Lymph % (Auto) 21.1 L (25-40) % [place] % (Auto) 8.0 (3-14) % Eos % (Auto) 3.3 (2-4) % Baso % (Auto) 0.9 (0-2) % Neut # (Auto) 7000 (4215-3456) /uL Lymph # (Auto) 2200 (6618-0256) /uL [place] # (Auto) 800 (0-900) /uL Eos # (Auto) 300 (0-450) /uL Baso # (Auto) 100 (0-100) /uL Sodium 136 L (137-145) mmol/L Potassium 3.7 (3.4-5.1) mmol/L Chloride 103 (98-107) mmol/L Carbon Dioxide 26 (22-32) mmol/L BUN 19 (9-20) mg/dL Creatinine 1.23 (0.66-1.25) mg/dL Estimated GFR > 60.0 (>60) mL/min BUN/Creatinine Ratio 15.4 (6-22) Glucose 101 H (70-100) mg/dL Calcium 9.0 (8.4-10.2) mg/dL Urine Color Yellow Urine Appearance Clear Urine pH 6.5 (4.5-8.0) Ur Specific [place] <=1.005 (1.000-1.035) Urine Protein Negative (Negative) Urine Glucose (UA) Negative (Negative) g/dL Urine Ketones Negative (NEGATIVE) Urine Occult Blood 3+ H (Negative) Urine Nitrate Negative (Negative) Urine Bilirubin Negative (NEGATIVE) Urine Urobilinogen 0.2 (0.2) E.U./dL Ur Leukocyte Esterase Trace H (NEGATIVE) Urine RBC 1-5/hpf (0-5/HPF) Urine WBC 0-1/hpf (0-5/HPF) Urine Bacteria None seen (None) Ur Culture Indicated? Specimen cultured Urine Dip Bedside Urine Glucose Negative Bedside Urine Bilirubin - Negative Bedside Urine Ketone - Negative Urine Specific [place] 1.010 Bedside Urine Occult Blood ++ Bedside Urine pH 6.0 Bedside Urine Urobilinogen - Negative Imaging Data Renal US: Radiologist's Impression: obstructing stone at Left UVJ with hydro Discharge Plan Departure Patient Disposition: Home Clinical Impression: Kidney stone on left side Discharge Date/Time: 10/07/19 22:58 Instructions: DI for Kidney Stones Activity Restrictions/Additional Instructions: *You have been diagnosed with [ Left sided kidney stone ] *What to do: *Take medications as directed *Follow up with your primary care provider in 2-3 days, call for an appointment. Let them know you were seen in the Emergency Department and that we ask that you be seen in follow up *Return to ER if you should have any new, worsening or concerning symptoms Prescriptions: No Action hydrocodone-acetaminophen 5-325 mg tablet 1 tab PO Q6H PRN (Reason: pain) Qty: 10 RF: 0 ondansetron 4 mg tablet,disintegrating 4 mg PO Q8H PRN (Reason: nausea and vomiting) Qty: 10 RF: 0 ciprofloxacin HCl [Cipro] 500 mg tablet 500 mg PO BID Qty: 14 RF: 0 oxycodone-acetaminophen [Percocet] 5-325 mg tablet 1 tab PO TID PRN (Reason: pain) Qty: 10 RF: 0 tamsulosin 0.4 mg capsule 0.4 mg PO DAILY 14 Days Qty: 14 RF: 0
[2019-10-07 20:46] VITALS: BP 161/96; PULSE 68; RESP 14; TEMP 36.7; O2SAT 100; BMI 25.7
[2019-10-07] MEDS: SODIUM CHLORIDE 0.9% 1,000 ML 1000 ML IV (20:50)
[2019-10-07 20:51] LABS: Add Manual Diff / Slide Review NO; Basophils Absolute Auto 100 /uL (0-100); Basophils Percent Auto 0.9 % (0-2); Eosinophils Absolute Auto 300 /uL (0-450); Eosinophils Percent Auto 3.3 % (2-4); Hematocrit 39.7 % (41-53); Hemoglobin 13.9 g/dL (13.5-17.5); Lymphocytes Absolute Auto 2200 /uL (1100-4500); Lymphocytes Percent Auto 21.1 % (25-40); Mean Corpuscular HGB Conc 35.1 % (30-36); Mean Corpuscular Hemoglobin 30.9 PG (26-34); Mean Corpuscular Volume 88.1 fL (80-100); Monocytes Absolute Auto 800 /uL (0-900); Neutrophils Absolute Auto 7000 /uL (1500-7000); Neutrophils Percent Auto 66.7 % (50-75); Platelet Count 228 X10^3/uL (150-400); Red Cell Distribution Width 12.9 % (11.6-14.8); White Blood Cell Count 10.5 X10^3/uL (4.5-11.0)
[2019-10-07 20:56] LABS: Bacteria Urine None Seen
[2019-10-07 20:57] LABS: Sodium 136 mmol/L (137-145)
[2019-10-07 20:58] LABS: Appearance Urine UA CLEAR; Bilirubin Urine UA NEGATIVE (NEGATIVE); Color Urine UA YELLOW; Glucose Urine UA NEGATIVE (Negative); Ketones Urine UA NEGATIVE (NEGATIVE); Leukocyte Esterase Urine UA TRACE (NEGATIVE); Nitrite Urine UA NEGATIVE (Negative); Occult Blood Urine UA 3+ (Negative); Protein Urine UA NEGATIVE (Negative); Specific Gravity Urine UA <=1.005 (1.000-1.035); Urobilinogen Urine UA 0.2 E.U./dL (0.2); pH Urine UA 6.5 (4.5-8.0)
[2019-10-07 21:00] LABS: BUN Creatinine Ratio 15.4 (6-22); Blood Urea Nitrogen 19 mg/dL (9-20); Carbon Dioxide 26 mmol/L (22-32); Chloride 103 mmol/L (98-107); Estimated Glomerular Filt Rate > 60.0 mL/min (>60); Glucose 101 mg/dL (70-100); HEMOLYSIS 21 (0-50); Potassium 3.7 mmol/L (3.4-5.1)
[2019-10-07 21:28] LABS: Culture Indicated Urine Specimen Cultured; RBC Urine 1-5/HPF (0-5/HPF); WBC Urine 0-1/HPF (0-5/HPF)
--- NOTE | 2019-10-07 21:29 | DI.US.S_ITS ---
PROCEDURE: US RENAL COMPLETE INDICATIONS: PAIN; KNOWN STONE TECHNIQUE: Real-time scanning was performed of the kidneys and bladder, with image documentation. COMPARISON: [facility], US, US RENAL COMPLETE, 10/03/2019, 19:02. [facility], CT, CT ABDOMEN PELVIS W CON, 09/28/2019, 7:34. FINDINGS: Kidneys: Kidneys are normal in size. Right kidney measures 12.3 cm long; left kidney measures 12.1 cm long. Right renal cortical thickness is 1 point cm; left renal cortical thickness is 2.1 cm. Renal cortical echotexture is normal. No solid renal lesions are evident. However, there is suggestion of an angiomyolipoma superior aspect of the right kidney that measures up to 8 mm in diameter. A simple appearing left renal cyst is present measuring up to 1.7 cm. There continues to be mild left-sided hydronephrosis which is similar to the previous study. Bladder: Pre-void bladder volume is 168 mL. Post-void residual is 0 mL. No significant urinary bladder wall thickening is identified. However, there are calculi evident within the distal ureter at the level of the vesicoureteral junction, measuring up to 8 mm in largest dimension. No bladder calculi are evident. The distal left ureter is dilated. Miscellaneous: No free pelvic fluid. IMPRESSION: 1. Mild residual left-sided hydronephrosis. 2. Dilated distal left ureter with ureteral calculi present at the vesicoureteral junction measuring up to 8 mm in diameter. 3. 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 Note: The preliminary report provided by [facility] is concordant with the final report. Dictated by: Toby Dietz M.D. on 10/08/2019 at 8:08 Approved by: Toby Dietz M.D. on 10/08/2019 at 8:11
[2019-10-07] MEDS: LIDOCAINE 2% 6.3 ML in SODIUM CHLORIDE 0.9% 50 ML 337.8 ML IV (22:10)
[2019-10-07] MEDS: HYDROCODONE/ACET 5/325 PREPACK 1 BOTTLE MISC (22:49)
[2019-10-07] MEDS: HYDROMORPHONE 1 MG INJ IV (22:50)
[2019-10-07 22:58] VITALS: BP 133/84; PULSE 69; RESP 16; TEMP 36.8; O2SAT 99
== END 2019-10-07 22:58 | disposition home or self-care (01) ==
PROVIDERS: Emergency Provider Emergency Medicine
DX: N20.0 Calculus of kidney (principal)
CPT/HCPCS: 36415; 76770; 80048; 81001; 81003; 85025; 87086; 96365; 96375; 99284; J1170

== ENCOUNTER 2020-10-13 10:40 | Emergency (ER) | payer OTHER, SELFPAY ==
[2020-10-13 11:07] VITALS: BP 150/81; PULSE 80; RESP 18; TEMP 37.3; O2SAT 96; BMI 25.1
--- NOTE | 2020-10-13 12:53 | ED_ITS ---
HPI - Animal Bite General Chief Complaint: Animal Bite Stated Complaint: bit by cat Time Seen by Provider: 10/13/20 12:53 Source: patient Mode of arrival: Ambulatory Limitations: no limitations History of Present Illness HPI narrative: This is a 34-year-old male who comes in with complaint of cat bites to both hands yesterday. It is his own animal. He states up-to-date on shots. He states he was doing fine be started noticing pain last night and redness particularly over both pinky fingers and radiating a little bit into the dorsum of the hand. Patient states quite painful. He denies any fevers. He denies any other medical issues. No allergies to medications. Patient is unsure of his last tetanus. Related Data Previous Rx's Medication Instructions Recorded ciprofloxacin HCl [Cipro] 500 mg PO BID #14 tab 09/28/19 hydrocodone-acetaminophen 1 tab PO Q6H PRN #10 tab 09/28/19 ondansetron 4 mg PO Q8H PRN #10 tab 09/28/19 oxycodone-acetaminophen [Percocet] 1 tab PO TID PRN #10 tab 10/03/19 amoxicillin-pot clavulanate 1 tab PO Q12H #20 tab 10/13/20 [Augmentin] hydrocodone-acetaminophen 1 tab PO QID PRN #10 tab 10/13/20 Allergies Allergy/AdvReac Type Severity Reaction Status Date / Time No Known Drug Allergies Allergy Verified 10/07/19 20:55 Review of Systems Review of Systems ROS Unobtainable: All systems reviewed & are unremarkable except as noted in HPI and below Patient History Medical History Low testosterone Surgical History History of breast surgery Social History Smoking Status: Former smoker Smoking Status: Former smoker alcohol intake frequency: 0-2 drinks per day Substance Use Type: marijuana Exam Narrative Exam Narrative: GENERAL: Alert and oriented x three, Male in mild distress. HEENT: Head normocephalic, atraumatic, EOMI, pupils reactive, face symmetric, moist mucous membranes NECK: Supple, full range of motion CARDIOVASCULAR: Regular rate and rhythm without murmurs, rubs or gallops. RESPIRATORY: Breath sounds equal bilaterally, no wheezes rales or rhonchi. ABDOMEN: Soft, nontender. Normoactive bowel sounds all 4 quadrants. No guarding or rebound, rigidity, no mass EXTREMITIES: Patient has normal range of motion except in the pinky fingers bilaterally he has some decreased flexion extension. Patient has some warmth and erythema extending over the pinky and into the dorsum of the hand greater on the right than left. Do not appreciate any warmth extending up the arm. Patient has multiple small puncture wounds and lacerations. edema. Neurovascularly intact. Normal sensation, cap refill less than 2 seconds all 10 fingers. NEUROLOGICAL: Cranial nerves II through XII grossly intact. Moving all extremities SKIN: Warm, dry, no petechiae, no rashes or lesions. Initial Vital Signs Initial Vital Signs: Vital Signs Temperature 99.1 F 10/13/20 11:07 Pulse Rate 80 10/13/20 11:07 Respiratory Rate 18 10/13/20 11:07 Blood Pressure 150/81 H 10/13/20 11:07 Pulse Oximetry 96 10/13/20 11:07 Course Orders Ordered: Discontinued Medications Hydrocodone Bitart/Acetaminophen (Hydrocodone/Acet 5/325 Tablet) 1 tab PO NOW ONE Stop: 10/13/20 13:01 Last Admin: 10/13/20 13:28 Dose: 1 tab Documented by: GILDA Amoxicillin/Clavulanate Potassium (Amoxicillin/Clav 875/125 Mg) 1 tab PO NOW ONE Stop: 10/13/20 13:01 Last Admin: 10/13/20 13:28 Dose: 1 tab Documented by: GILDA Diphtheria/Tetanus/Acell Pertussis (Tet,Diph,Pertuss(Acell),Vac/Pf 0.5 Ml Syringe) 0.5 ml IM .ONCE ONE Stop: 10/13/20 13:01 Last Admin: 10/13/20 13:28 Dose: Not Given Documented by: GILDA Vital Signs Vital signs: Vital Signs - 8 hr 10/13/20 11:07 Temperature 99.1 F Pulse Rate 80 Respiratory Rate 18 Blood Pressure 150/81 H Pulse Oximetry 96 MDM - Animal Bite MDM Narrative Medical decision making narrative: Patient has erythema and swelling on fingers of both hands, he does not have appear to have a tenosynovitis. Patient was started oral antibiotics here. Strict return precautions and patient and I discussed that if he is having worsening symptoms he absolutely needs to come back for repeat evaluation and possibly IV antibiotics. All questions were answered. Discharge Plan Departure Patient Disposition: Home Clinical Impression: Cat bite of left hand, Cat bite of right hand Instructions: DI for Cat Bite Activity Restrictions/Additional Instructions: Follow-up the next 24-48 hours for recheck. Take antibiotics until completely gone. You may take narcotic pain medication as needed, This medication can make you sleepy do not drive, perform hazardous activities or make any major decisions while taking it. This medication will make you constipated please take a stool softener once to twice daily until stools are soft and regular. Wound Care: Keep wound(s) clean and dry. Wash daily with soap and water only. Do not use over the counter products (alcohol or peroxide)on the wounds unless instructed by a physician. If wound condition worsens (increased/expanding redness, developing fluid blisters, or worsening pain), either contact your doctor for an urgent re- assessment , or return to the Emergency Department. Return to the Emergency Department for any new or worsening symptoms. Return if fever greater than 100.4 Fahrenheit, increased swelling, increasing pain or worsening symptoms such as increased discharge or spreading redness. Prescriptions: New amoxicillin-pot clavulanate [Augmentin] 875-125 mg tablet 1 tab PO Q12H Qty: 20 RF: 0 hydrocodone-acetaminophen 5-325 mg tablet 1 tab PO QID PRN (Reason: pain) Qty: 10 RF: 0 No Action hydrocodone-acetaminophen 5-325 mg tablet 1 tab PO Q6H PRN (Reason: pain) Qty: 10 RF: 0 ondansetron 4 mg tablet,disintegrating 4 mg PO Q8H PRN (Reason: nausea and vomiting) Qty: 10 RF: 0 ciprofloxacin HCl [Cipro] 500 mg tablet 500 mg PO BID Qty: 14 RF: 0 oxycodone-acetaminophen [Percocet] 5-325 mg tablet 1 tab PO TID PRN (Reason: pain) Qty: 10 RF: 0
[2020-10-13] MEDS: HYDROCODONE/ACET 5/325 TABLET 1 TAB PO (13:28)
[2020-10-13] MEDS: AMOXICILLIN/CLAV 875/125 MG 1 TAB PO (13:28)
== END 2020-10-13 13:32 | disposition home or self-care (01) ==
PROVIDERS: Emergency Provider Emergency Medicine
DX: S61.452A Open bite of left hand, initial encounter (principal); S61.451A Open bite of right hand, initial encounter; W55.01XA Bitten by cat, initial encounter; Z23 Encounter for immunization
CPT/HCPCS: 90471; 99283

== ENCOUNTER 2020-10-23 13:15 | Inpatient (IN) | payer OTHER, SELFPAY ==
[2020-10-23] VITALS (25 sets, daily range): BP systolic 121–169; BP diastolic 73–116; PULSE 52–96; RESP 12–28; TEMP 36.3–37.5; O2SAT 90–100; BMI 25.1
--- NOTE | 2020-10-23 13:36 | DI.RAD.S_ITS ---
PROCEDURE: XR FINGER LT MIN 2V INDICATIONS: 10 days oral abx, cat bite. not improving. TECHNIQUE: AP hand, 2 views of the 5th finger(s) acquired. COMPARISON: None. FINDINGS: Bones: No fractures or dislocations. No suspicious bony lesions. Soft tissues: No suspicious soft tissue calcifications. 5th digit soft tissue edema is present. IMPRESSION: 5th digit soft tissue edema is present. No underlying osseous abnormality. Dictated by: Tran Marvin M.D. on 10/23/2020 at 14:22 Approved by: Tran Marvin M.D. on 10/23/2020 at 14:22
--- NOTE | 2020-10-23 13:39 | ED_ITS ---
HPI - Skin/Abscess/Foreign Bdy <Zainab Orozco DO - Last Filed: 10/23/20 13:55> General Chief complaint: Skin/Abscess/Foreign Body Stated complaint: cat bite infection hasn't improved w/antibiotics Time Seen by Provider: 10/23/20 13:32 Source: patient Mode of arrival: Ambulatory Related Data Previous Rx's Medication Instructions Recorded ciprofloxacin HCl 500 mg tablet 500 mg PO BID #14 tab 09/28/19 (Cipro) hydrocodone 5 mg-acetaminophen 325 1 tab PO Q6H PRN #10 tab 09/28/19 mg tablet ondansetron 4 mg disintegrating 4 mg PO Q8H PRN #10 tab 09/28/19 tablet oxycodone-acetaminophen 5 mg-325 1 tab PO TID PRN #10 tab 10/03/19 mg tablet (Percocet) amoxicillin 875 mg-potassium 1 tab PO Q12H #20 tab 10/13/20 clavulanate 125 mg tablet (Augmentin) hydrocodone 5 mg-acetaminophen 325 1 tab PO QID PRN #10 tab 10/13/20 mg tablet Allergies Allergy/AdvReac Type Severity Reaction Status Date / Time NSAIDS (Non-Steroidal Allergy Verified 10/23/20 13:51 Anti-Inflamma Patient History <Zainab Orozco DO - Last Filed: 10/23/20 13:55> Medical History Low testosterone Surgical History History of breast surgery Social History Smoking Status: Former smoker Smoking Status: Former smoker alcohol intake frequency: 0-2 drinks per day Substance Use Type: marijuana Exam <Zainab Orozco DO - Last Filed: 10/23/20 13:55> Initial Vital Signs Initial Vital Signs: Vital Signs Temperature 97.8 F 10/23/20 13:22 Pulse Rate 87 10/23/20 13:22 Respiratory Rate 16 10/23/20 13:22 Blood Pressure 140/87 10/23/20 13:22 Pulse Oximetry 100 10/23/20 13:22 <Luna Sampson DO - Last Filed: 10/23/20 13:56> Initial Vital Signs Initial Vital Signs: Vital Signs Temperature 97.8 F 10/23/20 13:22 Pulse Rate 87 10/23/20 13:22 Respiratory Rate 16 10/23/20 13:22 Blood Pressure 140/87 10/23/20 13:22 Pulse Oximetry 100 10/23/20 13:22 Course <Zainab Orozco, DO - Last Filed: 10/23/20 13:55> Orders Ordered: ED Orders 10/23/20 13:35 Basic Metabolic Panel Stat Blood Culture Stat Complete Blood Count AUTO DIFF Stat Procalcitonin Stat 10/23/20 13:36 XR finger LT min 2V Stat 10/23/20 13:55 COVID19 - ADMIT ([employer] swab/PCR) Stat COVID19 -Nasal swab/Pre-Proc Stat Sodium Chloride (Normal Saline 0.9%) 1,000 mls @ 150 mls/hr IV CONT JOVAN Discontinued Medications Ampicillin Sodium/Sulbactam (Sodium 1.5 gm/ Sodium Chloride) 100 mls @ 100 mls/hr IV NOW ONE Stop: 10/23/20 13:36 Ketorolac Tromethamine (Ketorolac 30 Mg/Ml Vial) 30 mg IV NOW ONE Stop: 10/23/20 13:36 Vital Signs Vital signs: Vital Signs - 8 hr 10/23/20 13:22 Temperature 97.8 F Pulse Rate 87 Respiratory Rate 16 Blood Pressure 140/87 Pulse Oximetry 100 <Luna Sampson, DO - Last Filed: 10/23/20 13:56> Orders Ordered: ED Orders 10/23/20 13:35 Basic Metabolic Panel Stat Blood Culture Stat Complete Blood Count AUTO DIFF Stat Procalcitonin Stat 10/23/20 13:36 XR finger LT min 2V Stat 10/23/20 13:55 COVID19 - ADMIT ([employer] swab/PCR) Stat COVID19 -Nasal swab/Pre-Proc Stat Sodium Chloride (Normal Saline 0.9%) 1,000 mls @ 150 mls/hr IV CONT JOVAN Discontinued Medications Ampicillin Sodium/Sulbactam (Sodium 1.5 gm/ Sodium Chloride) 100 mls @ 100 mls/hr IV NOW ONE Stop: 10/23/20 13:36 Ketorolac Tromethamine (Ketorolac 30 Mg/Ml Vial) 30 mg IV NOW ONE Stop: 10/23/20 13:36 Vital Signs Vital signs: Vital Signs - 8 hr 10/23/20 13:22 Temperature 97.8 F Pulse Rate 87 Respiratory Rate 16 Blood Pressure 140/87 Pulse Oximetry 100 Discharge Plan Departure Prescriptions: No Action hydrocodone-acetaminophen 5-325 mg tablet 1 tab PO Q6H PRN (Reason: pain) Qty: 10 RF: 0 ondansetron 4 mg tablet,disintegrating 4 mg PO Q8H PRN (Reason: nausea and vomiting) Qty: 10 RF: 0 ciprofloxacin HCl [Cipro] 500 mg tablet 500 mg PO BID Qty: 14 RF: 0 oxycodone-acetaminophen [Percocet] 5-325 mg tablet 1 tab PO TID PRN (Reason: pain) Qty: 10 RF: 0 amoxicillin-pot clavulanate [Augmentin] 875-125 mg tablet 1 tab PO Q12H Qty: 20 RF: 0 hydrocodone-acetaminophen 5-325 mg tablet 1 tab PO QID PRN (Reason: pain) Qty: 10 RF: 0
[2020-10-23 14:03] LABS: Add Manual Diff / Slide Review NO; Basophils Absolute Auto 100 /uL (0-100); Basophils Percent Auto 1.5 % (0-2); Eosinophils Absolute Auto 400 /uL (0-450); Eosinophils Percent Auto 6.6 % (2-4); Hematocrit 46.8 % (41-53); Hemoglobin 15.8 g/dL (13.5-17.5); Lymphocytes Absolute Auto 1700 /uL (1100-4500); Lymphocytes Percent Auto 24.9 % (25-40); Mean Corpuscular HGB Conc 33.7 % (30-36); Mean Corpuscular Hemoglobin 30.1 PG (26-34); Mean Corpuscular Volume 89.2 fL (80-100); Monocytes Absolute Auto 600 /uL (0-900); Monocytes Percent Auto 9.3 % (3-14); Neutrophils Absolute Auto 3900 /uL (1500-7000); Neutrophils Percent Auto 57.7 % (50-75); Platelet Count 287 X10^3/uL (150-400); Red Blood Cell Count 5.24 X10^6/uL (4.5-5.9); Red Cell Distribution Width 13.3 % (11.6-14.8); White Blood Cell Count 6.8 X10^3/uL (4.5-11.0)
[2020-10-23] MEDS: AMPICILLIN/SULBACTAM 1.5 GM 1.5 GM in SODIUM CHLORIDE 0.9% 100 ML IV (14:15)
[2020-10-23 14:16] LABS: BUN Creatinine Ratio 14.5 (6-22); Blood Urea Nitrogen 12 mg/dL (9-20); Calcium 9.3 mg/dL (8.4-10.2); Carbon Dioxide 27 mmol/L (22-32); Chloride 108 mmol/L (98-107); Estimated Glomerular Filt Rate > 60.0 mL/min (>60); Glucose 89 mg/dL (70-100); HEMOLYSIS < 15 (0-50); Potassium 4.1 mmol/L (3.4-5.1); Sodium 139 mmol/L (137-145)
[2020-10-23] MEDS: MORPHINE 4 MG/ML INJ IV (14:16)
[2020-10-23] MEDS: SODIUM CHLORIDE 0.9% 1,000 ML 150 ML IV ×2 (14:18→17:17)
[2020-10-23 14:32] LABS: Procalcitonin 0.04 ng/mL (<0.5)
--- NOTE | 2020-10-23 14:59 | PC.NURSE ---
Patient c/o pain to left upper arm at IV site. When assessed, vein from IV site up to under arm is red and enflamed. Immediately stopped IV running with abx and NS. Removed IV and reported to provider. Dr noriega requests that patient be moved back to ED from [facility] to room 11 immediately for further care.
[2020-10-23] MEDS: cefTRIAXone 1,000 MG in SODIUM CHLORIDE 0.9% 100 ML 200 ML IV (15:25)
--- NOTE | 2020-10-23 15:31 | ED.SKABFB ---
HPI - Skin/Abscess/Foreign Bdy General Chief complaint: Skin/Abscess/Foreign Body Stated complaint: cat bite infection hasn't improved w/antibiotics Time Seen by Provider: 10/23/20 13:32 Source: patient Mode of arrival: Ambulatory History of Present Illness HPI narrative: This is a 35-year-old male who was seen on October 13 by myself after receiving multiple cat bites to both hands. Patient had warm, redness and skin changes consistent with cellulitis patient was started on Augmentin he had some improvement with redness warmth particularly the right hand but still has residual pain. The left hand the redness is improved but he has significant swelling of the 5th digit of his left hand. Patient has quite a bit of pain with movement. He has not had fevers or other symptoms systemically. He did complete the antibiotics except for 1 tablet. He was taking oral pain medication which was helpful but is still significantly uncomfortable. Patient denies any other major issues. He is allergic to NSAIDs and states they upset his stomach. Related Data Previous Rx's Medication Instructions Recorded ciprofloxacin HCl 500 mg tablet 500 mg PO BID #14 tab 09/28/19 (Cipro) hydrocodone 5 mg-acetaminophen 325 1 tab PO Q6H PRN #10 tab 09/28/19 mg tablet ondansetron 4 mg disintegrating 4 mg PO Q8H PRN #10 tab 09/28/19 tablet oxycodone-acetaminophen 5 mg-325 1 tab PO TID PRN #10 tab 10/03/19 mg tablet (Percocet) amoxicillin 875 mg-potassium 1 tab PO Q12H #20 tab 10/13/20 clavulanate 125 mg tablet (Augmentin) hydrocodone 5 mg-acetaminophen 325 1 tab PO QID PRN #10 tab 10/13/20 mg tablet Allergies Allergy/AdvReac Type Severity Reaction Status Date / Time NSAIDS (Non-Steroidal Allergy Verified 10/23/20 13:51 Anti-Inflamma Review of Systems Review of Systems ROS Unobtainable: All systems reviewed & are unremarkable except as noted in HPI and below Patient History Medical History Low testosterone Surgical History History of breast surgery Social History household members: spouse Smoking Status: Former smoker Smoking Status: Former smoker alcohol intake frequency: 0-2 drinks per day Substance Use Type: marijuana Exam Narrative Exam Narrative: GENERAL: Alert and oriented x three, well-nourished male in mild distress. HEENT: Head normocephalic, atraumatic, EOMI, pupils reactive, face symmetric, moist mucous membranes NECK: Supple, full range of motion CARDIOVASCULAR: Regular rate and rhythm without murmurs, rubs or gallops. RESPIRATORY: Breath sounds equal bilaterally, no wheezes rales or rhonchi. ABDOMEN: Soft, nontender. Normoactive bowel sounds all 4 quadrants. No guarding or rebound, rigidity, no mass : No CVA tenderness EXTREMITIES: Normal range of motion, no clubbing or edema. Neurovascularly intact. Of the right hand. There is healing puncture wounds consistent with cat bite on the right. On the left patient has erythema actually appears improved from his last visit on the but his 5th digit is significantly more swollen there feels to be some fluctuance over the joint. It is neurovascularly intact. He has significant increase in pain with extension. Patient is able to mildly flex but this is also comfortable. Patient's 2+ radial pulse. Do not appreciate any warmth. NEUROLOGICAL: Cranial nerves II through XII grossly intact. Moving all extremities SKIN: Warm, dry, no petechiae, no rashes or lesions otherwise noted. Initial Vital Signs Initial Vital Signs: Vital Signs Temperature 97.8 F 10/23/20 13:22 Pulse Rate 87 10/23/20 13:22 Respiratory Rate 16 10/23/20 13:22 Blood Pressure 140/87 10/23/20 13:22 Pulse Oximetry 100 10/23/20 13:22 Course Orders Ordered: ED Orders 10/23/20 13:36 XR finger LT min 2V Stat 10/23/20 13:55 Basic Metabolic Panel Stat Complete Blood Count AUTO DIFF Stat Procalcitonin Stat 10/23/20 14:19 Blood Culture Stat 10/23/20 14:52 COVID19 - ADMIT (DIRECTOR OF SEARCH ENGINE MARKETING swab/PCR) Stat Fentanyl (Fentanyl 100 Mcg/2 Ml Inj) 50 mcg IV NOW PRN PRN Reason: Pain Stop: 10/23/20 23:59 Sodium Chloride (Normal Saline 0.9%) 1,000 mls @ 150 mls/hr IV CONT JOVAN Last Admin: 10/23/20 17:17 Dose: 150 mls/hr Documented by: Infusion: 10/23/20 17:17 Dose: 150 mls/hr Documented by: Admin: 10/23/20 14:18 Dose: 150 mls/hr Documented by: TALI Lactated Ringer's (Lactated Ringers) 1,000 mls @ 125 mls/hr IV NOW ONE Stop: 10/24/20 03:14 Last Admin: 10/23/20 19:45 Dose: 125 mls/hr Documented by: LUCERO Oxycodone/Acetaminophen (Oxycodone/Acetaminophen 5/325 Tablet) 1 tab PO PACUNOW PRN PRN Reason: Mild or Moderate Pain Last Admin: 10/23/20 19:45 Dose: 1 tab Documented by: LUCERO Discontinued Medications Bupivacaine HCl (Bupivacaine 0.5% (Pf) Vial) 30 ml INJ NOW ONE Stop: 10/23/20 18:46 Last Admin: 10/23/20 18:45 Dose: 10 ml Documented by: CLAUDIA Hydromorphone HCl (Hydromorphone 0.5 Mg Inj) 0.5 mg IV NOW ONE Stop: 10/23/20 15:32 Last Admin: 10/23/20 15:38 Dose: 0.5 mg Documented by: KAYLYN Ampicillin Sodium/Sulbactam (Sodium 1.5 gm/ Sodium Chloride) 100 mls @ 100 mls/hr IV NOW ONE Stop: 10/23/20 13:36 Last Infusion: 10/23/20 16:40 Dose: 0 mls/hr Documented by: Admin: 10/23/20 14:15 Dose: 100 mls/hr Documented by: TALI Ceftriaxone Sodium 1,000 mg/ (Sodium Chloride) 100 mls @ 200 mls/hr IV NOW ONE Stop: 10/23/20 14:33 Last Infusion: 10/23/20 17:30 Dose: 0 mls/hr Documented by: Admin: 10/23/20 15:25 Dose: 200 mls/hr Documented by: KAYLYN Metronidazole (Flagyl) 500 mg in 100 mls @ 100 mls/hr IV NOW ONE Stop: 10/23/20 15:31 Last Infusion: 10/23/20 16:52 Dose: 100 mls/hr Documented by: Admin: 10/23/20 16:46 Dose: 100 mls/hr Documented by: WILBERT Gentamicin Sulfate 80 mg/ (Sodium Chloride) 102 mls @ 102 mls/hr IV NOW ONE Stop: 10/23/20 18:47 Last Admin: 10/23/20 18:57 Dose: Not Given Documented by: CLAUDIA Ketorolac Tromethamine (Ketorolac 30 Mg/Ml Vial) 30 mg IV NOW ONE Stop: 10/23/20 13:36 Last Admin: 10/23/20 15:47 Dose: Not Given Documented by: WILBERT Morphine Sulfate (Morphine 4 Mg/Ml Inj) 4 mg IV NOW ONE Stop: 10/23/20 14:12 Last Admin: 10/23/20 14:16 Dose: 4 mg Documented by: TALI Ondansetron HCl (Ondansetron 4 Mg/2 Ml Inj) 4 mg IV NOW ONE Stop: 10/23/20 15:32 Last Admin: 10/23/20 15:38 Dose: 4 mg Documented by: KAYLYN Reevaluation(s) Reevaluation #1: Recheck patient appears to have a reaction possibly to the Unasyn. This was stopped patient had redness on the alternate arm. Patient did not have any other systemic symptoms and redness self resolved. Patient did not receive additional medications for allergic reaction. Antibiotics were changed to Rocephin and Levaquin. Consultations Consultation #1: Spoke with Dr. White from Orthopedic surgery who accepts for admission likely plan for OR today for drainage. We did discuss plan to start Unasyn in the department. NPO. X-ray does not show acute changes. Labs are reassuring but patient does have significantly worsened swelling on his 5th digit on his left hand, he has significant pain with extension. Patient's swelling seems to be localized around the middle interphalangeal joint. Patient does not have significant redness and comparison to his last visit. Patient was seen by myself on the , he had multiple wounds and had swelling and redness of both 5th digits as well as some cellulitis extending into the hands. Patient's erythema has improved his right hand appears significantly improved although he does still have some residual pain. He has good range of motion. Vital Signs Vital signs: Vital Signs - 8 hr 10/23/20 13:22 Temperature 97.8 F Pulse Rate 87 Respiratory Rate 16 Blood Pressure 140/87 Pulse Oximetry 100 MDM - Skin/Abscess/Foreign Bdy Lab Data Result diagrams: 10/23/20 13:55 10/23/20 13:55 Labs: Lab Results 10/23/20 10/23/20 Range/Units 13:55 13:55 WBC 6.8 (4.5-11.0) X10^3/uL RBC 5.24 (4.5-5.9) X10^6/uL Hgb 15.8 (13.5-17.5) g/dL Hct 46.8 (41-53) % MCV 89.2 (80-100) fL MCH 30.1 (26-34) PG MCHC 33.7 (30-36) % RDW 13.3 (11.6-14.8) % Plt Count 287 (150-400) X10^3/uL Neut % (Auto) 57.7 (50-75) % Lymph % (Auto) 24.9 L (25-40) % [place] % (Auto) 9.3 (3-14) % Eos % (Auto) 6.6 H (2-4) % Baso % (Auto) 1.5 (0-2) % Neut # (Auto) 3900 (5885-4643) /uL Lymph # (Auto) 1700 (1492-0080) /uL [place] # (Auto) 600 (0-900) /uL Eos # (Auto) 400 (0-450) /uL Baso # (Auto) 100 (0-100) /uL Sodium 139 (137-145) mmol/L Potassium 4.1 (3.4-5.1) mmol/L Chloride 108 H (98-107) mmol/L Carbon Dioxide 27 (22-32) mmol/L BUN 12 (9-20) mg/dL Creatinine 0.83 (0.66-1.25) mg/dL Estimated GFR > 60.0 (>60) mL/min BUN/Creatinine Ratio 14.5 (6-22) Glucose 89 (70-100) mg/dL Calcium 9.3 (8.4-10.2) mg/dL Procalcitonin 0.04 (<0.5) ng/mL Imaging Data Extremity x-ray #1: Radiologist's Impression: [address] [id number] ReportSigned Patient: Martir Lynch [facility]#: [id number]: 1985Acct:[id number]/Sex: 35 / MDate of Service: 10/23/20Loc: [id number] Number: [id number] Procedure: XR finger LT min 2V Ordering Provider: Zainab Orozco D.O. PROCEDURE: XR FINGER LT MIN 2V INDICATIONS: 10 days oral abx, cat bite. not improving. TECHNIQUE: AP hand, 2 views of the 5th finger(s) acquired. COMPARISON: None. FINDINGS: Bones: No fractures or dislocations. No suspicious bony lesions. Soft tissues: No suspicious soft tissue calcifications. 5th digit soft tissue edema is present. IMPRESSION: 5th digit soft tissue edema is present. No underlying osseous abnormality. Dictated by: Tran Marvin M.D. on 10/23/2020 at 14:22 Approved by: Tran Marvin M.D. on 10/23/2020 at 14:22 [facility] Narrative Medical decision making narrative: This is a 35-year-old male who had cellulitis and infection of both hands seen on October 13 had almost completed an entire course of with 19/20 pills taken of his antibiotics and has continued significant increasing swelling of the left hand particularly the finger. Case was discussed with orthopedic surgery and Dr. White plans to take to OR. Patient was started antibiotics he appeared to have a reaction although he did not have systemic symptoms, antibiotic was stopped and patient's antibiotics were changed. Labs are reassuring. Discharge Plan Departure Patient Disposition: Admitted as Observation Clinical Impression: Cat bite of left hand with infection Admit Date/Time: 10/23/20 14:11 Admit Provider: Kelsi White
[2020-10-23] MEDS: ONDANSETRON 4 MG/2 ML INJ IV (15:38)
[2020-10-23] MEDS: HYDROMORPHONE 0.5 MG INJ IV (15:38)
[2020-10-23 16:05] LABS: COVID19 - ADMIT (NP swab/PCR) Negative (Negative)
[2020-10-23] MEDS: metroNIDAZOLE 500 MG/100 ML PIGGYBACK 100 MG IV (16:46)
--- NOTE | 2020-10-23 17:39 | P.HP_ITS ---
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 He noted redness and swelling and presented to the emergency room and [facility] her was placed on oral antibiotics. He is taken almost all of his antibiotics notes that his right hand has gotten better but he still having persistent problems with the left hand especially into the small finger. He return to the emergency room today for re-evaluation. He was noted to have fusiform swelling of the left small finger with ongoing pain. Patient History Medical History Low testosterone Surgical History History of breast surgery Family & Social History Social History: household members spouse Tobacco & Substance use: Smoking Status Former smoker alcohol intake frequency 0-2 drinks per day Substance Use Type marijuana Meds Home Medications and Allergies Home Medications Medication Instructions Recorded Confirmed Type ciprofloxacin HCl 500 mg tablet 500 mg PO BID #14 tab 09/28/19 Rx (Cipro) hydrocodone 5 mg-acetaminophen 325 1 tab PO Q6H PRN #10 tab 09/28/19 Rx mg tablet ondansetron 4 mg disintegrating 4 mg PO Q8H PRN #10 tab 09/28/19 Rx tablet oxycodone-acetaminophen 5 mg-325 1 tab PO TID PRN #10 tab 10/03/19 Rx mg tablet (Percocet) amoxicillin 875 mg-potassium 1 tab PO Q12H #20 tab 10/13/20 Rx clavulanate 125 mg tablet (Augmentin) hydrocodone 5 mg-acetaminophen 325 1 tab PO QID PRN #10 tab 10/13/20 Rx mg tablet Allergies Allergy/AdvReac Type Severity Reaction Status Date / Time NSAIDS (Non-Steroidal Allergy Verified 10/23/20 13:51 Anti-Inflamma Review of Systems Review of Systems ROS: Yes All systems reviewed with the patient and are negative except as otherwise documented Exam Vital Signs (past 8 hours): - 10/23/20 13:22 10/23/20 15:19 10/23/20 15:24 Temperature 97.8 F Pulse Rate 87 68 68 Respiratory Rate 16 Blood Pressure 140/87 135/77 Pulse Oximetry 100 99 100 10/23/20 15:30 10/23/20 15:34 10/23/20 16:00 Temperature Pulse Rate 72 69 64 Respiratory Rate Blood Pressure 134/73 121/77 Pulse Oximetry 99 100 96 10/23/20 16:30 10/23/20 16:31 10/23/20 17:00 Temperature 97.9 F Pulse Rate 56 L 74 60 Respiratory Rate 16 Blood Pressure 142/81 H 153/90 H Pulse Oximetry 99 90 L 100 Oxygen Delivery Method Room Air Narrative Exam Narrative: HEENT is benign, lungs are clear, cor regular rate and rhythm common abdomen benign, right hand small puncture wounds no evidence of erythema, no fluctuance, full range of motion, no pain with range of motion in the joints, left hand use of warm swelling of the left small finger with marked decreased range of motion in the left PIP joint small puncture wound wound over the left P IP joint and a palmar wound over the flexor tendon sheath, mild tenderness over the flexor tendon sheath, mild pain with passive extension, decreased active flexion Objective Imaging Left hand x-rays normal overall alignment, minimal to no substantial narrowing of the left small finger PIP joint: My impression: Left hand cat bite with failure of oral antibiotics. I have recommended irrigation and debridement of the left small finger. Procedure alternatives risks benefits and complications were discussed in detail. He understands and agrees. Labs Result Diagrams: 10/23/20 13:55 10/23/20 13:55 Labs: Laboratory Results - last 24 hr 10/23/20 10/23/20 10/23/20 13:55 13:55 14:52 WBC 6.8 RBC 5.24 Hgb 15.8 Hct 46.8 MCV 89.2 MCH 30.1 MCHC 33.7 RDW 13.3 Plt Count 287 Neut % (Auto) 57.7 Lymph % (Auto) 24.9 L [place] % (Auto) 9.3 Eos % (Auto) 6.6 H Baso % (Auto) 1.5 Neut # (Auto) 3900 Lymph # (Auto) 1700 [place] # (Auto) 600 Eos # (Auto) 400 Baso # (Auto) 100 Sodium 139 Potassium 4.1 Chloride 108 H Carbon Dioxide 27 BUN 12 Creatinine 0.83 Estimated GFR > 60.0 BUN/Creatinine Ratio 14.5 Glucose 89 Calcium 9.3 Procalcitonin 0.04 SARS-CoV-2 (PCR) Negative Assessment & Plan Assessment & Plan narrative: Left hand small finger cat bite and infection failure of oral antibiotics. His clinical exam is most consistent with a septic PIP joint. Does have some pain over the flexor tendon but not classic findings for flexor tenosynovitis. I have recommended irrigation and debridement of his left hand small finger. Think he needs admission and IV antibiotics and we will check on intraoperative culture results to see if we can better define optimum antibiotic routine. COVID-19 COVID-19 status: Negative Result date/Date tested (Pos, Neg/Pending): 10/23/20
--- NOTE | 2020-10-23 18:34 | SUR.OPER ---
Supine on padded OR bed, head on pillow, right arm secured on padded arm boards at <90 degrees abduction, right arm on the arm board under control of surgeon, legs uncrossed, safety belt at thigh, tape over blanket over lower legs.
[2020-10-23] MEDS: BUPIVACAINE 0.5% (PF) VIAL 30 ML INJ (18:45)
--- NOTE | 2020-10-23 19:15 | PM.OP.1 ---
Operative Date/Time/Diagnoses Date of procedure: 10/23/20 Time of procedure: 18:10 Pre-op diagnosis: Septic left small finger PIP joint, cat bite within hand infection Post-op diagnosis: same Procedure & Clinicians Procedure: Arthrotomy and excisional Irrigation and debridement left small finger PIP joint, irrigation and debridement excisional puncture wound palm Same procedure as scheduled: Yes Indications: This is a 35-year-old gentleman who got bit by a stray cat that he had opted who failed oral antibiotics he is brought to the operating room for irrigation and debridement and repair is needed. Surgeon: Kelsi White Click Yes if Unassisted: Yes Anesthesia Type: General Operative Notes Findings: Septic left small finger PIP joint with obvious synovitis Closure Type: primary Specimen(s): other (Cultures) Estimated Blood Loss (mL): 10 Blood products transfused: none Tourniquet time (min): 19 Procedure in detail: Patient brought to the operating room. Time-out was performed. The patient's left upper extremities prepped draped standard sterile fashion. High arm tourniquet was applied and elevated. Patient had been placed on oral antibiotics and IV Unasyn preoperatively. He had multiple puncture wounds around the small finger of his left hand. Initially an incision was made on the palmar aspect of his hand or 1 of the puncture wounds was placed. A small incision wound made dissection was carried out along the puncture wound it did not appear to penetrate the flexor tendon sheath. Was meticulously irrigated with dilute antibiotic irrigation after obtaining cultures. That wound was ultimately packed with a small 4 x 4 corner. Next attention was directed to the dorsum of the small finger an incision was made along the ulnar aspect of the PIP joint dissection was carried out through skin and subcutaneous tissues. There was a wound which tracked down into the PIP joint. There was significant synovitis in the PIP joint. Deep cultures were taken and portion of the synovium was also sent in a culture tube for deep culture and sensitivity. There was no gross pus but there was obvious significant synovitis and slightly cloudy fluid. There did not appear to be significant articular cartilage injury. Some grossly abnormal synovium was excised. The wound was meticulously irrigated with antibiotic irrigation. It was loosely approximated with nylon and a drain was packed into the PIP joint. A dense digital block with Marcaine was performed. The wound was dressed sterilely. Complications: none Post-operative Condition: stable Disposition: Acute Care Plan for aftercare: Admission for IV antibiotics. Check cultures tomorrow and potential discharge to home tomorrow or Wednesday depending upon clinical response to IV antibiotics.
--- NOTE | 2020-10-23 19:30 | SUR.PHASEI ---
Dr Frank is getting pain med since we were waiting for the night pharmacy to process the order. Patient calm, eating, drinking. Slight nausea but declined [address] Frank; informed him that patient has declined PO prior to this r/t slight nausea. Declined nausea medication or for me to speak with anesthesia
[2020-10-23] MEDS: OXYCODONE/ACETAMINOPHEN 5/325 TABLET 1 TAB PO (19:45)
[2020-10-23] MEDS: LACTATED RINGERS 1,000 ML 125 ML IV ×2 (19:45→20:41)
--- NOTE | 2020-10-23 20:19 | SUR.PHASEI ---
late note -- confirmed with Dr. White that she did not intend gentamicin to be given IV (which is why it wasn't given) -- entered in error
--- NOTE | 2020-10-23 20:27 | SUR.PHASEI ---
1999 late entry report called to Conner Leblanc RN 2009 Patient to floor by Hemant Arceo RN. Patient had his belongings including clothing, cell phone and tablet. A&O, stable and pleasant.
[2020-10-23] MEDS: AMPICILLIN/SULBACTAM 3 GM 3 GM in SODIUM CHLORIDE 0.9% 100 ML IV (20:47)
--- NOTE | 2020-10-23 21:22 | PC.NURSE ---
Addendum entered by Ritika Leblanc R.N. 10/23/20 22:36: Does not assess as pain 8/10 as pt professes when asked. Quietly resting in bed listening to music/podcast. Medicated as per emar. As per Dr. White, it is anticipated digital block will provide pain relief/control. Pt states exposed tip of left fifth digit remains numb. This tip of finger is warm to touch and pink in color. Dressing remains dry and intact elevated on pillows x 2 with ice to site. Addendum entered by Ritika Leblanc R.N. 10/23/20 22:04: Pt requests nicotine patch. Questioned pt who stated during admission process quit smoking 10 years ago. Pt elaborates uses avelino nicotine product. Phone call to Dr. White for order for patch as per pt request. Ice to left fifth finger elevated on pillows x 2. Coban wrap intact to same. Original Note: Pt to room 222 from PACU awake, alert, conversant. Pt states pain to left fifth digit 7/10 and has received percocet per PACU. Elevated left hand on two pillows. Spouse arrives with food for pt and pt eats without difficulty engaged in conversation with spouse and daughter. Permission granted for these visitors as per [facility], after speaking with char house supervisor, Iliana. IV antibiotics infusing to left forearm iv site without difficulty. Room air 99%. Pt with rhinitis and occasional cough and pt admits to allergies. Instructed pt to call staff if needing/desiring out of bed. BL calf scd's in place.
[2020-10-23] MEDS: ACETAMINOPHEN 325 MG TABLET 975 MG PO (21:35)
[2020-10-23] MEDS: OXYCODONE IR 5 MG TABLET PO (21:35)
[2020-10-23] MEDS: NICOTINE 14 PATCH 14 MG TOP (22:30)
[2020-10-23] MEDS: HYDROCODONE/ACET 5/325 TABLET 2 TAB PO (23:46)
[2020-10-24] MEDS: OXYCODONE IR 5 MG TABLET PO ×6 (01:52→22:35)
[2020-10-24] MEDS: AMPICILLIN/SULBACTAM 3 GM 3 GM in SODIUM CHLORIDE 0.9% 100 ML IV ×4 (02:22→20:58)
[2020-10-24 03:53] VITALS: BP 133/78; PULSE 66; RESP 16; TEMP 36.6; O2SAT 97
[2020-10-24] MEDS: HYDROCODONE/ACET 5/325 TABLET 2 TAB PO (04:23)
[2020-10-24 04:42] LABS: Hematocrit 44.2 % (41-53); Mean Corpuscular Hemoglobin 30.3 PG (26-34); Mean Corpuscular Volume 89.2 fL (80-100); Platelet Count 285 X10^3/uL (150-400); Red Blood Cell Count 4.95 X10^6/uL (4.5-5.9); Red Cell Distribution Width 13.4 % (11.6-14.8); White Blood Cell Count 9.5 X10^3/uL (4.5-11.0)
[2020-10-24 08:07] VITALS: BP 136/89; PULSE 57; RESP 16; TEMP 36.1; O2SAT 100
[2020-10-24] MEDS: ACETAMINOPHEN 325 MG TABLET 975 MG PO (08:29)
[2020-10-24] MEDS: NICOTINE 14 PATCH 14 MG TOP (08:30)
--- NOTE | 2020-10-24 09:21 | P.PN_ITS ---
Subjective Subjective Date Patient Seen: 10/24/20 Time Patient Seen: 09:21 Interval history: Patient states he is doing well overall but is in moderate discomfort at rest. At this time he rates his pain a 8/10 intensity throughout the left 5th digit. Patient denies fever, chills, nausea, chest pain, shortness of breath, or urinary retention. He reports good sensation throughout the bilateral upper extremities. Patient was seen in the emergency department on 10/13/2020 for multiple cat bites on the hands bilaterally. Patient was initially started on Augmentin and experience decreased swelling and erythema and hands bilaterally. He was then seen in the emergency department on 10/23/2020 with increased swelling and pain with range of motion on the left 5th digit. Patient was initially started on Unasyn but experienced a erythematous rash began to extend up his arm. Patient was then started on Rocephin and Levaquin. Exam Vital Signs (past 8 hours): - 10/24/20 03:53 10/24/20 08:07 Temperature 97.9 F 96.9 F L Pulse Rate 66 57 L Respiratory Rate 16 16 Blood Pressure 133/78 136/89 Pulse Oximetry 97 100 Oxygen Delivery Method Room Air Oxygen Flow Rate 0 Narrative Exam Narrative: 35-year-old male postop day 1 status post arthrotomy an excisional irrigation and debridement of left small finger PIP joint, irrigation and debridement excisionally puncture wound palm. Patient is resting comfortably in bed, is in no acute distress, is alert and oriented x3. Skin is warm and dry. Left 5th digit is wrapped in Coban with a bandage covering the distal portion of the 5th metacarpal. No erythema surrounding the surgical site appreciated. Good sensation appreciated throughout the bilateral upper extremities. Good capillary refill. Radial pulse palpated bilaterally. No other signs of DVT appreciated. Const General: cooperative, healthy appearing and comfortable Resp Effort & Inspection: normal respiratory effort and able to speak in complete sentences Skin General: no rashes or lesions noted Objective Labs Result Diagrams: 10/24/20 04:10 10/23/20 13:55 Labs: Laboratory Results - last 24 hr 10/23/20 10/23/20 10/23/20 13:55 13:55 14:52 WBC 6.8 RBC 5.24 Hgb 15.8 Hct 46.8 MCV 89.2 MCH 30.1 MCHC 33.7 RDW 13.3 Plt Count 287 Neut % (Auto) 57.7 Lymph % (Auto) 24.9 L [place] % (Auto) 9.3 Eos % (Auto) 6.6 H Baso % (Auto) 1.5 Neut # (Auto) 3900 Lymph # (Auto) 1700 [place] # (Auto) 600 Eos # (Auto) 400 Baso # (Auto) 100 Sodium 139 Potassium 4.1 Chloride 108 H Carbon Dioxide 27 BUN 12 Creatinine 0.83 Estimated GFR > 60.0 BUN/Creatinine Ratio 14.5 Glucose 89 Calcium 9.3 Procalcitonin 0.04 SARS-CoV-2 (PCR) Negative 10/24/20 04:10 WBC 9.5 RBC 4.95 Hgb 15.0 Hct 44.2 MCV 89.2 MCH 30.3 MCHC 34.0 RDW 13.4 Plt Count 285 Neut % (Auto) Lymph % (Auto) [place] % (Auto) Eos % (Auto) Baso % (Auto) Neut # (Auto) Lymph # (Auto) [place] # (Auto) Eos # (Auto) Baso # (Auto) Sodium Potassium Chloride Carbon Dioxide BUN Creatinine Estimated GFR BUN/Creatinine Ratio Glucose Calcium Procalcitonin SARS-CoV-2 (PCR) FOR[facility]LY [facility] Medical History Low testosterone Surgical History History of breast surgery Social History household members: spouse Smoking Status: Former smoker alcohol intake: current Assessment & Plan Post-op Postoperative Procedures: Procedures Operation Date: 10/23/20 18:00 Actual Procedure Side Surgeon p Incision and Drainage of Left Small Finger Left Kelsi Jocelin White MD Postoperative day: 1 Postoperative status: doing well and marginal pain control Postoperative plan narrative: Current pain management regimen is to be continued. Plan to have the patient continue on IV antibiotics pending final culture results. Once culture results are finalized patient will be in a targeted antibiotic therapy. Patient will be monitored for his clinical response to the antibiotic.
[2020-10-24 13:00] VITALS: BP 149/77; PULSE 67; RESP 16; TEMP 36.6; O2SAT 97
[2020-10-24 15:25] VITALS: BP 142/76; PULSE 62; RESP 16; TEMP 36.8; O2SAT 97
--- NOTE | 2020-10-24 15:31 | PC.NURSE ---
VSS. Bp elevated at 142/72. Pain 7-8/10, PRN oxycodone 5 mg providing mild relief. Call light within reach, bed low. SBA to toilet.
--- NOTE | 2020-10-24 15:49 | PC.NURSE ---
Addendum entered by Ritika Leblanc R.N. 10/24/20 23:29: Pt able to sleep following iv dilaudid administration. Rates pain 7/10 to left fifth finger upon awakening. Administered oxycodone as per emar as well as pt's restless leg med as per pt request. Addendum entered by Ritika Leblanc R.N. 10/24/20 18:59: Pt consistently rates pain as the same. When asked specifics rates left fifth finger pain 8/10. Noted provider did see patient early this morning per prog note and pt endorses this. Call to Dr. Butcher (employee communications intern for ortho) to discuss and MD requests pt continue with strict icing and elevation above the heart. Obtained order for pt's hs med for restless leg syndrome as well as med to treat breakthrough pain. Original Note: Pt awake, alert in bed conducting work tasks via electronic devices. Per dayshift report, pt not obtaining good pain control with current regimen. Pt requests restless leg medication as per home routine. This content writer encouraged pt to ask provider for these things when rounds are made by ortho this afternoon. Pt verbalizes agreement and understanding. Pt admits to full sensation to left hand fifth digit. Coban wrap dry and intact to left fifth digit. IV antibiotics infusing as ordered to left forearm iv site. Refuses scd's at this time. Denies any urinary difficulty. Hearty appetite and pt denies nausea.
--- NOTE | 2020-10-24 17:10 | CM.IDA ---
Initial DCP Assessment Note Pt is a 35 yo male, resident of [place], now POD#1 from Incision and Drainage of Left Small Finger by Dr White PCP: Not listed Payer: Commercial Insurance Met w/patient to introduce role. Patient indp and active at baseline, self employed. Patient denies needs from this CINDER WORKER and is hopeful to return home this evening on po abx. Patient lives w/spouse and 8 yo dtr. Patient appreciative for the visit. This CINDER WORKER left contact info on white board in case any DC needs or concerns arise. No needs expected from DC planning team although will remain available in case this changes before DC. MIGUEL ANGEL Riojas
[2020-10-24] MEDS: HYDROMORPHONE 0.5 MG INJ IV (19:09)
[2020-10-24 19:56] VITALS: BP 146/89; PULSE 67; RESP 17; TEMP 36.6; O2SAT 95
[2020-10-24] MEDS: SODIUM CHLORIDE 0.9% FLUSH 10 ML IV (20:59)
[2020-10-24] MEDS: clonazePAM 0.5 MG TABLET 1 MG PO (22:35)
[2020-10-24 23:44] VITALS: BP 137/86; PULSE 62; RESP 16; TEMP 36.3; O2SAT 96
[2020-10-25] MEDS: HYDROCODONE/ACET 5/325 TABLET 2 TAB PO (00:14)
[2020-10-25] MEDS: AMPICILLIN/SULBACTAM 3 GM 3 GM in SODIUM CHLORIDE 0.9% 100 ML IV ×3 (01:50→14:00)
[2020-10-25 03:30] VITALS: BP 158/87; PULSE 63; RESP 18; TEMP 35.9; O2SAT 99
[2020-10-25] MEDS: OXYCODONE IR 5 MG TABLET PO ×3 (04:18→12:51)
--- NOTE | 2020-10-25 07:40 | P.PN_ITS ---
Subjective Subjective Date Patient Seen: 10/25/20 Time Patient Seen: 07:40 Interval history: Patient states he is doing well overall but is in moderate discomfort at rest. At this time he rates his pain a 6/10 intensity throughout the left 5th digit. Patient denies fever, chills, nausea, chest pain, shortness of breath, or urinary retention. He reports good sensation throughout the bilateral upper extremities. Patient was seen in the emergency department on 10/13/2020 for multiple cat bites on the hands bilaterally. Patient was initially started on Augmentin and experience decreased swelling and erythema and hands bilaterally. He was then seen in the emergency department on 10/23/2020 with increased swelling and pain with range of motion on the left 5th digit. Patient was initially started on Unasyn but experienced a erythematous rash began to extend up his arm. Patient was then started on Rocephin and Levaquin. Patient explains that he believes the swelling in his left 5th digit has improved significantly since surgery. Exam Vital Signs (past 8 hours): - 10/24/20 23:44 10/25/20 03:30 Temperature 97.4 F L 96.6 F L Pulse Rate 62 63 Respiratory Rate 16 18 Blood Pressure 137/86 158/87 H Pulse Oximetry 96 99 Oxygen Delivery Method Room Air Oxygen Flow Rate 0 Narrative Exam Narrative: 35-year-old male postop day 2. Patient is resting comfortably in bed, is in no acute distress, is alert and oriented x3. Skin is warm and dry, skin surrounding the surgical site is free of erythema, warmth, induration, or discharge. Dressing over the left 5th digit was removed to reveal an incision on the dorsal aspect of the left 5th digit it is discharging scant am ount serosanguineous discharge. Tenderness to palpation at the base of the left 5th digit and the medial aspect of the left hand. Good sensation appreciated throughout the bilateral upper extremities. Radial pulse palpated bilaterally. Gross motor function intact. No signs of DVT appreciated. Const General: cooperative, healthy appearing and comfortable Resp Effort & Inspection: normal respiratory effort and able to speak in complete sentences Skin General: no rashes or lesions noted Objective Labs Result Diagrams: 10/24/20 04:10 10/23/20 13:55 [facility] Medical History Low testosterone Surgical History History of breast surgery Social History household members: spouse Smoking Status: Former smoker alcohol intake: current Assessment & Plan Post-op Postoperative Procedures: Procedures Operation Date: 10/23/20 18:00 Actual Procedure Side Surgeon p Incision and Drainage of Left Small Finger Left Kelsi Jocelin White MD Postoperative day: 2 Postoperative status: doing well Postoperative plan narrative: Current pain management regimen is to be continued as is adequately controlled the patient's pain level. Awaiting the results final cultures. At this time the only remaining culture pending is the anaerobic culture from the wound on the left 5th digit. Dressing over the surgical site was changed. A gauze sponge was placed over the surgical site a gauze bandage wrapped around the left 5th digit and tape securely to patient's palm. Plan for discharge likely today or tomorrow on p.o. antibiotics pending final culture results.
[2020-10-25 07:41] VITALS: BP 142/70; PULSE 63; RESP 18; TEMP 36.2; O2SAT 98
[2020-10-25] MEDS: NICOTINE 14 PATCH 14 MG TOP (07:52)
[2020-10-25] MEDS: ACETAMINOPHEN 325 MG TABLET 975 MG PO ×2 (07:53→14:00)
[2020-10-25] MEDS: SODIUM CHLORIDE 0.9% FLUSH 10 ML IV (09:10)
--- NOTE | 2020-10-25 16:31 | PM.DS.1 ---
History of Present Illness History of Present Illness Date Patient Seen: 10/25/20 Time Patient Seen: 16:32 Chief complaint: cat bite infection hasn't improved w/antibiotics Narrative: Refer to previous HPI. Discharge Providers Provider Date of admission: 10/23/20 14:11 Discharge Date: 10/25/20 Consults: 10/23/20 20:20 Consult to Discharge Planning Routine Comment: Consult to Respiratory Therapy Evaluate & Treat Comment: Physician Instructions: Evaluate and treat Discharge provider: Matthew Pelaez PA-C Summary Hospital Course Discharge Diagnosis: Septic left small finger PIP joint cat bite with hand infection Status post arthrotomy and excisional Irrigation and debridement left small finger PIP joint, irrigation and debridement excisional puncture wound palm Hospital Course: Patient was admitted to the hospital following the above-listed procedure for the above-listed diagnosis. Following the procedure the patient has been convalescing appropriately in his pain has been managed with his current pain management regimen. Following the procedure the patient is surgical site has been covered with gauze bandage in changed as needed. Parents course in the hospital the patient has denied fever, chills, nausea, chest pain, shortness of breath, or urinary retention. Status at Discharge Cognitive/behavioral status at discharge: oriented Functional status at discharge: independent ambulation Overall status at discharge: patient is progressing back to baseline Exam Vital Signs (past 8 hours): Oxygen Delivery Method Room Air Oxygen Flow Rate 0 Narrative Exam Narrative: 35-year-old male postop day 2. Patient is resting comfortably in bed, is in no acute distress, is alert and oriented x3. Skin is warm and dry, skin surrounding the surgical site is free of erythema, warmth, induration, or discharge. Dressing over the left 5th digit was removed to reveal an incision on the dorsal aspect of the left 5th digit it is discharging scant amount serosanguineous discharge. Tenderness to palpation at the base of the left 5th digit and the medial aspect of the left hand. Good sensation appreciated throughout the bilateral upper extremities. Radial pulse palpated bilaterally. Gross motor function intact. No signs of DVT appreciated. Const General: cooperative, healthy appearing and comfortable Resp Effort & Inspection: normal respiratory effort and able to speak in complete sentences Skin General: no rashes or lesions noted and elasticity normal Objective Labs Result Diagrams: 10/24/20 04:10 10/23/20 13:55 REPLACED BY [facility] Medical History Low testosterone Surgical History History of breast surgery Social History household members: spouse Smoking Status: Former smoker alcohol intake: current Discharge Assessment & Plan Assessment and Plan Assessment: Patient is doing well and is stable. Plan of Treatment: First postoperative visit in clinic is scheduled for 2 weeks following discharge. Current pain management regimen is to be continued as it is adequately controlled the patient's pain level. Augmentin 875 mg twice daily is to be continued for 8 weeks. Dressing over the incision site can be changed as needed if it becomes damaged or soiled. Patient is to contact clinic with any concerns or questions. Any signs of increased redness, swelling, warmth, pain, or discharge from around the surgical site should be reported to the clinic. Discharge Plan Discharge Plan Patient Disposition: Home Discharge orders & Medications Prescriptions: New acetaminophen 325 mg Tablet 975 mg PO TID Qty: 90 RF: 0 amoxicillin-pot clavulanate [Augmentin] 875-125 mg Tablet 1 tab PO BID Qty: 16 RF: 0 oxycodone 5 mg Tablet 5 mg PO Q3HR PRN (Reason: Pain, Moderate (4-6)) Qty: 40 RF: 0 Continued clonazepam [Klonopin] 1 mg Tablet 1 mg PO BEDTIME PRN (Reason: Restless Leg(S)) RF: 0 Diet/Activity/Treatments Diet: Diet as Tolerated and Regular Activity: Gentle range of motion activity. Activity as tolerated by pain. Skin/Wound/Dressing Care Report to your healthcare provider any signs of infection, such as:: chills, fever, night sweats, increased pain, unusual drainage and unusual redness Dressing: Dressing over the incision site can be changed as needed if it becomes damaged or soiled. Visit Report/Discharge Packet Instructions: Animal Bites, DI for Prescription Opioid Use, DI for Incision and Drainage of a Joint, DI for Incision and Drainage, [facility]: Wound Care Stand Alone Forms: Surgery Discharge
--- NOTE | 2020-10-25 17:25 | PC.NURSE ---
Addendum entered by Ritika Leblanc R.N. 10/25/20 17:49: Pt left hospital with all personal effects in possession via wheelchair with PROFESSOR OF MECHANICAL ENGINEERING escort and was passenger in spouse's car per PROFESSOR OF MECHANICAL ENGINEERING. Pt left hospital in stable condition. Original Note: JUAN ANTONIO Pelaez arrives to discharge pt to home. Scripts provided to pt and placed in pt's blue folder. Discharge instructions provided to pt in written and verbal format. Encouraged pt to call ortho clinic on Wednesday to schedule follow up appointment. IV removed per pt request and pt quickly out of bed and dresses self. States hasn't had narcotics in a few hours and asks to drive self home. Informed pt this is not acceptable as pt has received narcotics today. Pt making arrangements for transportation to home. Eating evening meal. Kerlix dressing to left fifth finger is dry and intact.
== END 2020-10-25 17:52 | disposition home or self-care (01) | DRG 514 ==
LOC: ED 14:11 → AC 14:12
PROVIDERS: Admitting Provider Orthopaedic Surgery; Emergency Provider Emergency Medicine; Referring Provider Emergency Medicine; Visit Provider Orthopaedic Surgery
PROC: 0RBX0ZZ Excision of Left Finger Phalangeal Joint, Open Approach (ICD-10-PCS; principal; 2020-10-23 18:00)
DX: M00.842 Arthritis due to other bacteria, left hand (principal); M65.842 Other synovitis and tenosynovitis, left hand; L27.1 Localized skin eruption due to drugs and medicaments taken internally; T36.0X5A Adverse effect of penicillins, initial encounter; S61.257A Open bite of left little finger without damage to nail, initial encounter; Z20.822 Contact with and (suspected) exposure to COVID-19; W55.01XA Bitten by cat, initial encounter; Z87.891 Personal history of nicotine dependence
CPT/HCPCS: 36415; 73140; 80048; 84145; 85025; 85027; 87040; 87070; 87075; 87077; 87147; 87186; 87205; 87635; 96365; 96367; 96375; 99284; C9803; J0295; J0696; J1170; J2250; J2270; J2405; J2704; J3010